=== PATIENT | male | born 1985 | race Caucasian/White ===

== ENCOUNTER 2019-01-31 19:21 | Inpatient (IN) | payer MEDICARE, OTHER ==
[2019-01-31] MEDS ORDERED: SODIUM CHLORIDE 0.9% 1,000 ML IV STA (19:45)
[2019-01-31 21:00] LABS: Amorphous Sediment,Urine Rare /hpf; Appearance,Urine Turbid (Clear); Bilirubin,Urine Negative (Negative); Blood,Urine Large (Negative); Color,Urine Red; Glucose,Urine (UA) Negative (Negative); Ketones,Urine Negative (Negative); Leukocyte Esterase,Urine Small (Negative); Nitrite,Urine Negative (Negative); PH, Urine 5.5 (5.0-8.0); Protein,Urine 2+ (Negative); RBC,Urine >182 /hpf (0-5); Specific Gravity,Urine 1.014 (1.001-1.035); Urobilinogen,Urine <2.0 mg/dL (<2.0); WBC,Urine 31 /hpf (0-5)
[2019-01-31] MEDS ORDERED: cefTRIAXone 1,000 MG VIAL (IM USE) IM STA (21:42)
[2019-01-31] MEDS ORDERED: MORPHINE SULFATE 4 MG/ML SYRINGE IV STA (22:22)
--- NOTE | 2019-01-31 22:28 | US ---
EXAMINATION TYPE: US venous doppler duplex LE RT DATE OF EXAM: 01/31/2019 10:01 PM COMPARISON: NONE CLINICAL HISTORY: cellulitis. Cellulitis. SIDE PERFORMED: Right TECHNIQUE: The lower extremity deep venous system is examined utilizing real time linear array sonog raghu with graded compression, doppler sonography and color-flow sonography. VESSELS IMAGED: Greater Saphenous Vein * Femoral Vein Popliteal Vein Patient 537 pounds. Right Leg: Very limited exam due to body habitus and patient position. Exam minimally diagnostic. Hypoechoic area with hyperechoic center seen in the right groin measurin.0 x 4.3 x 2.8 cm. Color flow and compressibility seen right GSV mid thigh. Color flow seen in the proximal-mid femoral vein. Limited visibility for compression images of femoral vein. Limited evaluation of popliteal vein . Color flow is seen mid-distal popliteal vein. Proximal calf veins not well seen. Limited compressio n images. IMPRESSION: Exam severely limited. Cannot demonstrate deep venous thrombosis. There is a large mass in the right inguinal region that is probably an enlarged lymph node.
--- NOTE | 2019-01-31 22:29 | XR ---
EXAMINATION TYPE: XR chest 2V DATE OF EXAM: 01/31/2019 COMPARISON: NONE HISTORY: Cough and fever TECHNIQUE: Frontal and lateral views of the chest are obtained. FINDINGS: Heart and mediastinum are normal. Lungs are clear. Diaphragm is normal. Bony thorax is int act. IMPRESSION: No active cardiopulmonary disease.
--- NOTE | 2019-01-31 22:30 | XR ---
EXAMINATION TYPE: XR tibia fibula RT DATE OF EXAM: 01/31/2019 COMPARISON: NONE HISTORY: Cellulitis. Fever. TECHNIQUE: 4 views FINDINGS: There is significant subcutaneous edema and obesity. I see no fracture nor dislocation. The re is an Achilles calcaneal spur. There is no sign of focal bone destruction. Tibia and fibula appear intact. IMPRESSION: No fracture seen. No evidence of osteomyelitis.
[2019-01-31 23:10] LABS: Anisocytosis Slight; Basophils # (A) 0.1 k/uL (0-0.2); Basophils % (A) 1 %; Eosinophils % (A) 0 %; HCT 37.6 % (39.0-53.0); HGB 11.8 gm/dL (13.0-17.5); Hypochromasia Slight; Lymphocytes # (A) 0.7 k/uL (1.0-4.8); Lymphocytes % (A) 5 %; MCH 25.8 pg (25.0-35.0); MCHC 31.3 g/dL (31.0-37.0); MCV 82.5 fL (80.0-100.0); Mean Platelet Volume 6.4; Monocytes # (A) 0.4 k/uL (0-1.0); Monocytes % (A) 3 %; Neutrophils # (A) 12.4 k/uL (1.3-7.7); Neutrophils % (A) 90 %; Platelet Count 284 k/uL (150-450); RBC 4.56 m/uL (4.30-5.90); RDW 16.2 % (11.5-15.5); WBC 13.8 k/uL (3.8-10.6)
[2019-01-31 23:20] LABS: Albumin 3.3 g/dL (3.5-5.0); Calcium 8.7 mg/dL (8.4-10.2); Total Bilirubin 0.4 mg/dL (0.2-1.3); Total Protein 6.4 g/dL (6.3-8.2)
[2019-01-31] MEDS ORDERED: VANCOMYCIN IV PER PHARMACY 1 EACH MISC MISCELLANE PRN (23:50)
--- NOTE | 2019-01-31 23:51 | ED ---
General Adult HPI - General Source: EMS, RN notes reviewed, old records reviewed Mode of arrival: EMS Limitations: no limitations <Jalil Viveros - Last Filed: 02/01/19 00:55> <Jya Che - Last Filed: 02/01/19 06:05> - General Chief complaint: Extremity Problem,Nontraumatic Stated complaint: Leg Infection Time Seen by Provider: 01/31/19 19:26 - History of Present Illness Initial comments: 33-year-old male patient passed history of morbid obesity, polycystic kidney disease, solitary kidney presents to ED for chief complaint of right lower extremity cellulitis. Mother reports has been ongoing for approximately one week. Patient reports cough. Denies any other complaints. Systemic: Pt denies fatigue, fever/chills, rash. Pt denies weakness, night sweats, weight loss. Neuro: Pt denies headache, visual disturbances, syncope or pre-syncope. HEENT: Pt denies ocular discharge or irritation, otalgia, rhinorrhea, pharyngitis or notable lymphadenopathy. Cardiopulmonary: Pt denies chest pain, SOB, heart palpitations, dyspnea on exertion. Abdominal/GI: Pt denies abdominal pain, n/v/d. : Pt denies dysuria, burning w/ urination, frequency/urgency. Denies new onset urinary or bowel incontinence. MSK: Pt denies myalgia, loss of strength or function in extremities. Neuro: Pt denies new onset weakness, paresthesias. (Jalil Viveros) - Related Data Allergies Allergy/AdvReac Type Severity Reaction Status Date / Time No Known Allergies Allergy Verified 01/31/19 20:45 Review of Systems ROS Other: All systems not noted in ROS Statement are negative. <Jalil Viveros - Last Filed: 02/01/19 00:55> ROS Other: All systems not noted in ROS Statement are negative. <Jay Che - Last Filed: 02/01/19 06:05> ROS Statement: Those systems with pertinent positive or pertinent negative responses have been documented in the HPI. Past Medical History Past Medical History: Memory Impairment, Skin Disorder Additional Past Medical History / Comment(s): 1 kidney polycystic kidney disease age 2. enlarged heart. 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 History of Any Multi-Drug Resistant Organisms: None Reported Additional Past Surgical History / Comment(s): right kidney removed age 2 Past Psychological History: No Psychological Hx Reported Smoking Status: Never smoker Past Alcohol Use History: None Reported Past Drug Use History: None Reported <Jalil Viveros - Last Filed: 02/01/19 00:55> General Exam Limitations: no limitations <Jalil Viveros - Last Filed: 02/01/19 00:55> - General Exam Comments Initial Comments: Constitutional: NAD, AOX3, Pt has pleasant affect. HEENT: NC/AT, trachea midline, neck supple, no lymphadenopathy. Posterior pharynx non erythematous, without exudates. External ears appear normal, without discharge. Mucous membranes moist. Eyes PERRLA, EOM intact. There is no scleral icterus. No pallor noted. Cardiopulmonary: RRR, no murmurs, rubs or gallops, no JVD noted. Lungs CTAB in anterior and posterior larson. Abdominal exam: Abdomen soft and non-distended. Abdomen non-tender to palpation in all 4 quadrants. Bowel sounds active in LLQ. No hepatosplenomegaly. No ecchymosis Neuro: CN II-XII grossly intact. No nuchal rigidity. No raccon eyes, no arias sign, no hemotympanum. No cervical spinal tenderness. MSK: Right lower extremity cellulitic, edematous. Mildly tender to palpation. No streaking. Capillary refill <2 seconds. Sensation intact in upper and lower extremities. Full active ROM in upper and lower extremities, 5/5 stregnth. (Jalil Viveros) Course Vital Signs 01/31/19 02/01/19 02/01/19 19:24 00:50 02:44 Temperature 99.3 F 99.3 F Pulse Rate 101 H 95 94 Respiratory 21 18 20 Rate Blood Pressure 128/72 125/68 116/63 O2 Sat by Pulse 99 98 97 Oximetry Medical Decision Making - Lab Data Result diagrams: 01/31/19 22:44 01/31/19 22:44 <Jalil Viveros - Last Filed: 02/01/19 00:55> - Lab Data Result diagrams: 01/31/19 22:44 01/31/19 22:44 <Jay Che - Last Filed: 02/01/19 06:05> - Medical Decision Making 33-year-old male patient presents ED for chief complaint of right lower extremity cellulitis as well as cough. Has been ongoing for approximately one week. Patient vital signs are stable, afebrile. Physical exam didn't display cellulitic, edematous right lower extremity. Mild tender to palpation. No fluctuance. No drainage. Chest x-ray negative. Plain film of tibia/fibula negative. Ultrasound of right lower extremity did not display any DVT, didn't display an enlarged right inguinal lymph node. However was grossly nondiagnostic due to body habitus. O2 investigations revealed leukocytosis of 13.8. CMP revealed creatinine of 2.0. BUN of 38. Baseline unknown. Lactic acid 1.4. UA displayed gross hematuria, likely secondary to body habitus. Patient initiated on Rocephin, vancomycin. Delay in IV access due to body habitus, consent and plan for central line was obtained however prior to procedure IV access was obtained. Patient be admitted for cellulitis. Case discussed and patient seen by Dr. Perez. (Jalil Viveros) I saw this patient in conjunction with the physician elementary assistant teacher. I performed independent history and physical exam. Agree with case management. (Jay Che) - Lab Data Lab Results 01/31/19 01/31/19 01/31/19 Range/Units 20:40 22:44 22:44 WBC 13.8 H (3.8-10.6) k/uL RBC 4.56 (4.30-5.90) m/uL Hgb 11.8 L (13.0-17.5) gm/dL Hct 37.6 L (39.0-53.0) % MCV 82.5 (80.0-100.0) fL MCH 25.8 (25.0-35.0) pg MCHC 31.3 (31.0-37.0) g/dL RDW 16.2 H (11.5-15.5) % Plt Count 284 (150-450) k/uL Neutrophils % 90 % Lymphocytes % 5 % Monocytes % 3 % Eosinophils % 0 % Basophils % 1 % Neutrophils # 12.4 H (1.3-7.7) k/uL Lymphocytes # 0.7 L (1.0-4.8) k/uL Monocytes # 0.4 (0-1.0) k/uL Eosinophils # 0.0 (0-0.7) k/uL Basophils # 0.1 (0-0.2) k/uL Hypochromasia Slight Anisocytosis Slight Sodium 138 (137-145) mmol/L Potassium 4.0 (3.5-5.1) mmol/L Chloride 100 (98-107) mmol/L Carbon Dioxide 31 H (22-30) mmol/L Anion Gap 7 mmol/L BUN 38 H (9-20) mg/dL Creatinine 2.04 H (0.66-1.25) mg/dL Est GFR (CKD-EPI)AfAm 48 (>60 ml/min/1.73 sqM) Est GFR (CKD-EPI)NonAf 41 (>60 ml/min/1.73 sqM) Glucose 84 (74-99) mg/dL Plasma Lactic Acid Familia (0.7-2.0) mmol/L Calcium 8.7 (8.4-10.2) mg/dL Total Bilirubin 0.4 (0.2-1.3) mg/dL AST 40 (17-59) U/L ALT 56 (21-72) U/L Alkaline Phosphatase 134 H (38-126) U/L Total Protein 6.4 (6.3-8.2) g/dL Albumin 3.3 L (3.5-5.0) g/dL Urine Color Red Urine Appearance Turbid (Clear) Urine pH 5.5 (5.0-8.0) Ur Specific Opdyke 1.014 (1.001-1.035) Urine Protein 2+ H (Negative) Urine Glucose (UA) Negative (Negative) Urine Ketones Negative (Negative) Urine Blood Large H (Negative) Urine Nitrite Negative (Negative) Urine Bilirubin Negative (Negative) Urine Urobilinogen <2.0 (<2.0) mg/dL Ur Leukocyte Esterase Small H (Negative) Urine RBC >182 H (0-5) /hpf Urine WBC 31 H (0-5) /hpf Urine WBC Clumps Moderate H (None) /hpf Amorphous Sediment Rare H (None) /hpf 01/31/19 Range/Units 22:53 WBC (3.8-10.6) k/uL RBC (4.30-5.90) m/uL Hgb (13.0-17.5) gm/dL Hct (39.0-53.0) % MCV (80.0-100.0) fL MCH (25.0-35.0) pg MCHC (31.0-37.0) g/dL RDW (11.5-15.5) % Plt Count (150-450) k/uL Neutrophils % % Lymphocytes % % Monocytes % % Eosinophils % % Basophils % % Neutrophils # (1.3-7.7) k/uL Lymphocytes # (1.0-4.8) k/uL Monocytes # (0-1.0) k/uL Eosinophils # (0-0.7) k/uL Basophils # (0-0.2) k/uL Hypochromasia Anisocytosis Sodium (137-145) mmol/L Potassium (3.5-5.1) mmol/L Chloride (98-107) mmol/L Carbon Dioxide (22-30) mmol/L Anion Gap mmol/L BUN (9-20) mg/dL Creatinine (0.66-1.25) mg/dL Est GFR (CKD-EPI)AfAm (>60 ml/min/1.73 sqM) Est GFR (CKD-EPI)NonAf (>60 ml/min/1.73 sqM) Glucose (74-99) mg/dL Plasma Lactic Acid Familia 1.4 (0.7-2.0) mmol/L Calcium (8.4-10.2) mg/dL Total Bilirubin (0.2-1.3) mg/dL AST (17-59) U/L ALT (21-72) U/L Alkaline Phosphatase (38-126) U/L Total Protein (6.3-8.2) g/dL Albumin (3.5-5.0) g/dL Urine Color Urine Appearance (Clear) Urine pH (5.0-8.0) Ur Specific Opdyke (1.001-1.035) Urine Protein (Negative) Urine Glucose (UA) (Negative) Urine Ketones (Negative) Urine Blood (Negative) Urine Nitrite (Negative) Urine Bilirubin (Negative) Urine Urobilinogen (<2.0) mg/dL Ur Leukocyte Esterase (Negative) Urine RBC (0-5) /hpf Urine WBC (0-5) /hpf Urine WBC Clumps (None) /hpf Amorphous Sediment (None) /hpf Disposition Is patient prescribed a controlled substance at d/c from ED?: No <Jalil Viveros - Last Filed: 02/01/19 00:55> <Jay Che - Last Filed: 02/01/19 06:05> Clinical Impression: Cellulitis Disposition: ADMITTED IP TO THIS HOSP Condition: Serious
[2019-02-01] MEDS ORDERED: MORPHINE SULFATE 4 MG/ML SYRINGE IV PRN (00:04)
[2019-02-01] MEDS ORDERED: NALOXONE 0.4 MG/ML 1 ML VIAL IV PRN (00:04)
[2019-02-01] MEDS ORDERED: VANCOMYCIN 2,500 MG in SODIUM CHLORIDE 0.9% 500 ML 500 ML IVPB ONE (01:00)
[2019-02-01] MEDS ORDERED: MAG HYDROX/AL HYDROX/SIMETH 30 ML, HYOSCYAMINE ELIXIR 10 ML, LIDOCAINE VISCOUS 2% 10 ML PO STA ×3 (01:07)
[2019-02-01] MEDS ORDERED: ONDANSETRON 4 MG/2 ML VIAL IVP STA (01:07)
[2019-02-01] MEDS: SODIUM CHLORIDE 0.9% 1,000 ML IV SCH ×3 (01:41→23:54)
[2019-02-01] MEDS ORDERED: ENOXAPARIN 150 MG/ML SYRINGE SQ STA (02:29)
[2019-02-01] MEDS ORDERED: ENOXAPARIN 150 MG/ML SYRINGE SQ ONE (05:00)
[2019-02-01] MEDS: LEVOTHYROXINE 75 MCG TAB PO SCH (11:44)
[2019-02-01] MEDS: ATENOLOL 25 MG TAB PO SCH (11:44)
[2019-02-01] MEDS: PANTOPRAZOLE 40 MG/10 ML VIAL IVP SCH (11:44)
[2019-02-01 11:51] LABS: Anisocytosis Slight; HGB 10.9 gm/dL (13.0-17.5); MCH 24.6 pg (25.0-35.0); MCHC 30.2 g/dL (31.0-37.0); MCV 81.3 fL (80.0-100.0); Mean Platelet Volume 7.5; Platelet Count 209 k/uL (150-450); RBC 4.43 m/uL (4.30-5.90); RDW 16.6 % (11.5-15.5); WBC 10.8 k/uL (3.8-10.6)
[2019-02-01 11:57] LABS: Calcium 8.1 mg/dL (8.4-10.2); Potassium 3.8 mmol/L (3.5-5.1)
[2019-02-01] MEDS: HYDROcodone/APAP 5-325MG 1 EACH TAB PO PRN ×2 (14:35→21:26)
[2019-02-01] MEDS: ceFAZolin 3 GM in SODIUM CHLORIDE 0.9% 100 ML IVPB SCH ×2 (16:38→23:54)
--- NOTE | 2019-02-01 16:38 | US ---
EXAMINATION TYPE: US kidneys/renal and bladder DATE OF EXAM: 02/01/2019 COMPARISON: NONE CLINICAL HISTORY: renal failure. Renal failure, history of polycystic kidney disease, right nephrecto my 31 years ago EXAM MEASUREMENTS: Right Kidney: Surgically absent Left Kidney: 16.0 x 11.0 x 9.4 cm Technical limitations due to patient's body habitus - 5'4", 530+ pounds Right Kidney: sugically absent Left Kidney: limited evaluation, enlarged, no evidence of hydronephrosis Bladder: unable to visualize Bilateral Jets seen: no IMPRESSION: Right kidney is surgically absent. There is severe limitation in evaluation of the enlarg ed left kidney. This patient has a history of polycystic kidney disease although no discrete renal le caty is seen given the severe limitation in evaluation. Questionable mild hydronephrosis.
[2019-02-01] MEDS: NYSTATIN 100,000 UNIT/GM POWD 15 GM TOPICAL SCH ×2 (20:03→23:55)
[2019-02-01] MEDS: NYSTATIN 100,000UNIT/GM CREAM 30 GM TUBE TOPICAL SCH ×2 (20:03→23:55)
[2019-02-01] MEDS: MONTELUKAST 10 MG TAB PO SCH (21:26)
--- NOTE | 2019-02-01 22:52 | P.CONS ---
History of Present Illness - Reason for Consult Consult date: 02/01/19 right leg cellulitis Requesting physician: Rafael Torres - Chief Complaint right leg swelling and redness x 1 week - History of Present Illness Patient is a 33-year-old morbidly obese male who has been brought into the ER at [facility] with chief complaints of swelling and redness to his right lower extremity that apparently has been getting worse for the last 1 week patient denies having any history of any trauma patient describing pain to the right leg to be sharp to dull aching with intensity about 5-6/10 and no radiation patient did have diffuse swelling and redness, however he did not have any blisters or any open wound or any drainage the patient did have some low- grade fever and chills with the symptoms the patient was evaluated by the ER physician on arrival to the ER to be to have low-grade fever of 99.8 patient did have elevated white count of 13,000 the lower extremity Doppler was limited but did not demonstrate any DVT patient has been started on vancomycin admit to the hospital infectious disease was consulted for further recommendation regarding antibiotic therapy. Review of Systems Positive point has been mentioned in HPI rest of the systems are negative Past Medical History Past Medical History: Memory Impairment, Skin Disorder Additional Past Medical History / Comment(s): 1 kidney polycystic kidney disease age 2. enlarged heart. 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 History of Any Multi-Drug Resistant Organisms: None Reported Additional Past Surgical History / Comment(s): right kidney removed age 2 Past Anesthesia/Blood Transfusion Reactions: No Reported Reaction Past Psychological History: No Psychological Hx Reported Smoking Status: Never smoker Past Alcohol Use History: None Reported Past Drug Use History: None Reported Medications and Allergies Home Medications Medication Instructions Recorded Confirmed Type Atenolol [Tenormin] 25 mg PO DAILY 02/01/19 02/01/19 History Bumetanide [BUMEX] 2 mg PO DAILY 02/01/19 02/01/19 History Ergocalciferol [Vitamin D2] 50,000 unit PO Q7D 02/01/19 02/01/19 History Ibuprofen [Motrin] 600 mg PO DAILY PRN 02/01/19 02/01/19 History Levothyroxine Sodium [Synthroid] 150 mcg PO QAM 02/01/19 02/01/19 History Montelukast [Singulair] 10 mg PO DAILY 02/01/19 02/01/19 History Vitamin B Complex 1 cap PO DAILY 02/01/19 02/01/19 History amLODIPine [Norvasc] 5 mg PO DAILY 02/01/19 02/01/19 History Allergies Allergy/AdvReac Type Severity Reaction Status Date / Time No Known Allergies Allergy Verified 02/01/19 07:56 Physical Exam Vitals: Vital Signs Temp Pulse Pulse Resp BP BP Pulse Ox 02/01/19 21:07 97.8 F 88 22 110/62 95 02/01/19 15:00 99.3 F 80 16 113/56 97 02/01/19 05:15 20 02/01/19 05:00 98.8 F 92 22 104/63 96 02/01/19 02:44 94 20 116/63 97 02/01/19 00:50 99.3 F 95 18 125/68 98 Intake and Output 02/01/19 02/01/19 02/01/19 06:59 14:59 22:59 Intake Total 2299 Balance 2299 Intake: Intake, IV Titration 2299 Amount Sodium Chloride 0.9% 1, 800 000 ml @ 60 mls/hr IV . [id number] [facility] Rx#:[id number] Sodium Chloride 0.9% 1, 999 000 ml @ 999 mls/hr IV . Q1H1M [facility] Rx#:[id number] Vancomycin 2,500 mg In 500 Sodium Chloride 0.9% 500 ml 500 ml @ 167 mls/hr IVPB Q24H [facility] Rx#: [id number] Other: Voiding Method Bedpan Incontinent Diaper Incontinent # Voids 2 3 # Bowel Movements 1 2 GENERAL DESCRIPTION: Middle-aged male lying in bed, no distress. No tachypnea or accessory muscle of respiration use. HEENT: Shows Pallor , no scleral icterus. Oral mucous membrane is dry. NECK: Trachea central, no thyromegaly. LUNGS: Unlabored breathing. Decreased breath sound at the base. No wheeze or crackle. HEART: S1, S2, regular rate and rhythm. ABDOMEN: Soft, no tenderness , guarding or rigidity EXTREMITIES: Diffuse swelling of both lower extremity however her right leg is more swollen right warm to touch and tender no open wound or any drainage SKIN: No rash, no masses palpable. NEUROLOGICAL: The patient is awake, alert, oriented x3, mood and affect normal. Results CBC & Chem 7: 02/01/19 11:18 02/01/19 11:18 Labs: Abnormal Lab Results - Last 24 Hours (Table) 01/31/19 01/31/19 02/01/19 Range/Units 22:44 22:44 11:18 WBC 13.8 H 10.8 H (3.8-10.6) k/uL Hgb 11.8 L 10.9 L (13.0-17.5) gm/dL Hct 37.6 L 36.0 L (39.0-53.0) % MCH 24.6 L (25.0-35.0) pg MCHC 30.2 L (31.0-37.0) g/dL RDW 16.2 H 16.6 H (11.5-15.5) % Neutrophils # 12.4 H (1.3-7.7) k/uL Lymphocytes # 0.7 L (1.0-4.8) k/uL Carbon Dioxide 31 H (22-30) mmol/L BUN 38 H (9-20) mg/dL Creatinine 2.04 H (0.66-1.25) mg/dL Calcium (8.4-10.2) mg/dL Alkaline Phosphatase 134 H (38-126) U/L Albumin 3.3 L (3.5-5.0) g/dL 02/01/19 Range/Units 11:18 WBC (3.8-10.6) k/uL Hgb (13.0-17.5) gm/dL Hct (39.0-53.0) % MCH (25.0-35.0) pg MCHC (31.0-37.0) g/dL RDW (11.5-15.5) % Neutrophils # (1.3-7.7) k/uL Lymphocytes # (1.0-4.8) k/uL Carbon Dioxide (22-30) mmol/L BUN 37 H (9-20) mg/dL Creatinine 1.88 H (0.66-1.25) mg/dL Calcium 8.1 L (8.4-10.2) mg/dL Alkaline Phosphatase (38-126) U/L Albumin (3.5-5.0) g/dL Microbiology - Last 24 Hours (Table) 11/11/19 20:40 Urine Culture - Preliminary Urine,Voided Assessment and Plan Assessment: 1-patient presented to the hospital with acute cellulitis of his right lower extremity in this patient who did have diffuse swelling and redness and evidence of fluid overload likely representing streptococcal infection clinically doubt MRSA infection 2-patient with a history of polycystic kidney disease and one kidney high risk of nephrotoxicity from vancomycin (1) Cellulitis of right leg Current Visit: Yes Status: Acute Code(s): L03.115 - CELLULITIS OF RIGHT LOWER LIMB SNOMED Code(s): 846751075 Plan: 1-discontinue the vancomycin 2-marked the area of the redness 3-cefazolin 3 g every 8 hours 4-Nilo wrap to the leg from just above the toe to below the knee We will follow on clinical condition and cultures to further adjust medication if needed Thank you for this consultation we will follow the patient along with you Time with Patient: Greater than 30
--- NOTE | 2019-02-01 22:56 | CONS ---
CONSULTATION PHYSICAL EXAMINATION: On examination, the patient is comfortable, awake, alert, oriented x3. Not in any acute distress. Blood pressure is 104/63, heart rate 92 per minute, and he is afebrile. EXAMINATION OF THE HEART: S1 and S2. EXAMINATION OF THE LUNGS: Bilateral breath sounds are heard. ABDOMEN: Soft, morbidly obese. Examination of lower extremities shows significant erythema and swelling in the right leg. Chronic skin changes noted in the left leg as well. [employer] examination grossly intact. LABORATORY DATA: Labs show sodium 141, potassium 3.8, BUN 37, serum creatinine 1.8. Hemoglobin 10.9 g/dL. ASSESSMENT: 1. Acute kidney injury associated with underlying infection. Patient is currently maintained on IV fluids. I will decrease his IV fluids. His renal function is slightly improved. We need to be careful with the vancomycin, given his advanced renal failure. 2. Chronic kidney disease; baseline creatinine not known. Etiology polycystic kidneys and solitary kidney. 3. History of left nephrectomy at age 2 due to kidney being very large. 4. Morbid obesity. 5. Cellulitis, right lower extremity, maintained on vancomycin. 6. Hypertension. Blood pressure is currently on the lower side. Hold off on antihypertensive medications. PLAN: Decrease IV fluids. Patient is encouraged to avoid NSAIDs. Repeat labs in a.m. Check ultrasound of the kidney. Thank you for this consultation. Will continue to follow this patient with you during his hospitalization. MMODL / IJN: [id number] /
[2019-02-02] MEDS ORDERED: VANCOMYCIN 2,500 MG in SODIUM CHLORIDE 0.9% 500 ML 500 ML IVPB SCH (02:00)
[2019-02-02] MEDS: HYDROcodone/APAP 5-325MG 1 EACH TAB PO PRN ×2 (02:44→19:47)
[2019-02-02] MEDS: LEVOTHYROXINE 75 MCG TAB PO SCH (06:30)
[2019-02-02] MEDS: ATENOLOL 25 MG TAB PO SCH (07:02)
[2019-02-02] MEDS: ceFAZolin 3 GM in SODIUM CHLORIDE 0.9% 100 ML IVPB SCH ×2 (07:02→15:11)
[2019-02-02] MEDS: NYSTATIN 100,000 UNIT/GM POWD 15 GM TOPICAL SCH ×3 (07:03→21:41)
[2019-02-02] MEDS: PANTOPRAZOLE 40 MG/10 ML VIAL IVP SCH (07:03)
[2019-02-02] MEDS: NYSTATIN 100,000UNIT/GM CREAM 30 GM TUBE TOPICAL SCH ×3 (07:03→21:41)
[2019-02-02] MEDS ORDERED: NON FORMULARY DRUG (Vitamin B Complex [Vitamin B Complex] 1 CAP) PO SCH (09:00)
[2019-02-02 09:50] LABS: Anisocytosis Slight; Basophils # (A) 0.1 k/uL (0-0.2); Basophils % (A) 1 %; Eosinophils % (A) 0 %; HCT 36.6 % (39.0-53.0); HGB 11.5 gm/dL (13.0-17.5); Hypochromasia Slight; Lymphocytes # (A) 0.9 k/uL (1.0-4.8); Lymphocytes % (A) 10 %; MCH 25.6 pg (25.0-35.0); MCHC 31.3 g/dL (31.0-37.0); MCV 81.9 fL (80.0-100.0); Mean Platelet Volume 7.2; Monocytes # (A) 0.5 k/uL (0-1.0); Monocytes % (A) 6 %; Neutrophils # (A) 7.2 k/uL (1.3-7.7); Neutrophils % (A) 81 %; Platelet Count 184 k/uL (150-450); RBC 4.47 m/uL (4.30-5.90); RDW 16.5 % (11.5-15.5); WBC 8.9 k/uL (3.8-10.6)
[2019-02-02 10:28] LABS: Calcium 8.1 mg/dL (8.4-10.2); Potassium 3.9 mmol/L (3.5-5.1)
[2019-02-02] MEDS: SODIUM CHLORIDE 0.9% 1,000 ML IV SCH (11:06)
--- NOTE | 2019-02-02 14:06 | PN ---
PROGRESS NOTE DATE OF SERVICE: 02/02/2019 REASON FOR FOLLOWUP: Right lower extremity cellulitis. INTERVAL HISTORY: The patient is currently afebrile. Patient is breathing comfortably. Patient denies having any chest pain or cough. No nausea, no vomiting, no abdominal pain. The right leg swelling persists and redness; however, did mention that the pain has decreased in intensity compared to when he was admitted to the hospital. PHYSICAL EXAMINATION: Blood pressure is 111/59 with a pulse of 80, temperature 98.6, he is 97% on 2 L nasal cannula. General description is a middle-aged male out of the bed, in no distress. RESPIRATORY SYSTEM:: Unlabored breathing, clear to auscultation anteriorly. HEART: S1, S2. Regular rate and rhythm. ABDOMEN: Soft, no tenderness. Right leg has significant swelling and redness, slightly decreased in intensity, no drainage. LABS: Hemoglobin is 11.5, white count of 8.9. BUN of 34, creatinine 1.78. Blood culture has been negative. DIAGNOSTIC IMPRESSION AND PLAN: Patient extensive right lower extremity cellulitis. The patient did have evidence of diffuse swelling and redness likely streptococcal disease. Patient is currently covered with cefazolin. In view of extensive infection, will add clindamycin for added benefit as well as Nilo wrap to keep the swelling down and monitor his clinical course closely. Continue supportive care. MMODL / IJN: [id number] /
--- NOTE | 2019-02-02 15:12 | PN ---
PROGRESS NOTE Patient is seen for followup for chronic kidney disease and acute kidney injury. Patient is maintained on gentle IV hydration. His creatinine has improved from 2.0 on initial admission to 1.78 today. Patient has a solitary kidney. He has underlying polycystic kidney disease. He is admitted with significant pain, swelling, and a wound on his right lower extremity. Patient was maintained on vancomycin, which is now switched to clinda and cefazolin. PHYSICAL EXAMINATION: On examination today, blood pressure was 111/69, heart rate 80 per minute, patient is afebrile. Examination shows the abdomen is soft, obese, non-tender. Patient is alert and oriented x3. Examination of the lower extremities shows chronic skin changes bilaterally with significant edema and swelling in the right lower extremity, currently wrapped. LABS: Show hemoglobin 11.5, sodium 139, potassium 3.9, BUN 34, creatinine 1.78. ASSESSMENT: 1. Chronic kidney disease secondary to polycystic kidney disease and solitary kidney. 2. Status post left nephrectomy at age 2. 3. Acute kidney injury, prerenal and associated with underlying infection currently slowly improving. Patient is maintained on saline at 50 mL an hour which we can continue. Vancomycin is appropriately discontinued. 4. Hypertension, maintained on Tenormin, currently stable. PLAN: The patient is advised to continue to avoid use of NSAIDs. He will need followup as outpatient. Continue with the saline at 50 mL an hour. MMODL / IJN: [id number] /
[2019-02-02] MEDS: CLINDAMYCIN 900 MG in DEXTROSE 5% IN WATER 50 ML IVPB SCH ×2 (16:01)
[2019-02-02] MEDS: MONTELUKAST 10 MG TAB PO SCH (21:40)
--- NOTE | 2019-02-02 22:49 | HP ---
HISTORY AND PHYSICAL This is a 33-year-old white male admitted through the emergency room with significant swelling and redness to the lower extremity for the past week. He has had a history of this 3 times in the past, admitted in [place] to [facility]. He says that swelling, redness and blisters came on over a week's period of time. He had some drainage, low- grade fever and chills as symptoms. He came to the ER with a fever of 99.8, white count 30,000. Left lower lobe Doppler did not demonstrate DVT. He was started on vancomycin and admitted to the hospital. REVIEW OF SYSTEMS: Fourteen-point review of systems negative except for morbid obesity and inability to lose weight. 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 No smoking. No alcohol. No illicit drugs. HOME MEDICINES: 1. Tenormin 25 daily. 2. Bumex 2 mg daily. 3. Motrin 600 mg daily. 4. Vitamin D 50,000 units q.7 days. 5. Levothyroxine 150 mcg daily. 6. Singulair 10 mg daily. 7. Norvasc 5 mg daily. ALLERGIES: NO KNOWN DRUG ALLERGIES. LABS: BUN is 37, creatinine 1.88. ASSESSMENT: 1. Acute cellulitis of the lower extremity. 2. Lymphedema. 3. Significant cellulitis of the lower extremity. 4. Acute renal insufficiency. 5. Mild dehydration. Continue in the next 24 to 48 hours with IV antibiotics. Await infectious disease consultation. Wound dressing changes. MMODL / IJN: [id number] /
--- NOTE | 2019-02-02 23:00 | PN ---
PROGRESS NOTE This patient is a 33-year-old white male with chronic kidney disease, acute kidney injury. Creatinine is improving from 2 to 1.78. He has decreased redness in his right leg despite diffuse significant erythema including the whole entire right leg from the knee to the foot. He is on clindamycin, cefazolin IV. Blood pressure 111/69, heart rate 80, temperature 98.6. Abdomen is soft, morbidly obese. Lymphedema-type changes to the lower extremity with significant edema, extreme redness and swelling and warm to the right leg from the foot to the knee. Hemoglobin 11.5. Sodium 139, potassium 3.9. BUN is 34, creatinine 1.78. ASSESSMENT: 1. Cellulitis of the right leg. 2. Chronic kidney disease. 3. Polycystic kidney disease. 4. Solitary kidney. Continue on normal saline. Vancomycin discontinued. 1. Hypertension, currently stable. Please see further orders, including clindamycin and cefazolin IV per infectious disease recommendations. Wound care to the ulcerations. MMODL / IJN: [id number] /
[2019-02-03] MEDS: ceFAZolin 3 GM in SODIUM CHLORIDE 0.9% 100 ML IVPB SCH ×3 (00:27→15:14)
[2019-02-03] MEDS: CLINDAMYCIN 900 MG in DEXTROSE 5% IN WATER 50 ML IVPB SCH ×6 (01:40→16:17)
[2019-02-03] MEDS: HYDROcodone/APAP 5-325MG 1 EACH TAB PO PRN ×3 (01:42→23:16)
[2019-02-03] MEDS: LEVOTHYROXINE 75 MCG TAB PO SCH (06:45)
[2019-02-03] MEDS: SODIUM CHLORIDE 0.9% 1,000 ML IV SCH (06:46)
[2019-02-03] MEDS: PANTOPRAZOLE 40 MG/10 ML VIAL IVP SCH (07:48)
[2019-02-03] MEDS: ATENOLOL 25 MG TAB PO SCH (07:49)
[2019-02-03] MEDS: NYSTATIN 100,000UNIT/GM CREAM 30 GM TUBE TOPICAL SCH ×3 (07:49→20:34)
[2019-02-03] MEDS: NYSTATIN 100,000 UNIT/GM POWD 15 GM TOPICAL SCH ×3 (07:49→20:34)
[2019-02-03 08:27] LABS: Anisocytosis Slight; Basophils # (A) 0.1 k/uL (0-0.2); Basophils % (A) 1 %; Calcium 8.2 mg/dL (8.4-10.2); Eosinophils % (A) 0 %; HCT 37.1 % (39.0-53.0); HGB 11.6 gm/dL (13.0-17.5); Hypochromasia Moderate; Lymphocytes # (A) 0.8 k/uL (1.0-4.8); Lymphocytes % (A) 10 %; MCHC 31.1 g/dL (31.0-37.0); MCV 83.4 fL (80.0-100.0); Mean Platelet Volume 6.4; Monocytes # (A) 0.7 k/uL (0-1.0); Monocytes % (A) 8 %; Neutrophils # (A) 6.9 k/uL (1.3-7.7); Neutrophils % (A) 80 %; Platelet Count 202 k/uL (150-450); Potassium 3.9 mmol/L (3.5-5.1); RBC 4.45 m/uL (4.30-5.90); RDW 16.1 % (11.5-15.5); WBC 8.6 k/uL (3.8-10.6)
[2019-02-03] MEDS ORDERED: ONDANSETRON 4 MG/2 ML VIAL IVP PRN (12:22)
--- NOTE | 2019-02-03 17:20 | PN ---
PROGRESS NOTE Patient is seen for followup for acute kidney injury. Patient's renal function continues to improve. He is maintained on gentle IV hydration. Patient has a solitary kidney with history of right nephrectomy during childhood. He has underlying CKD from polycystic kidney disease. Patient is admitted to the hospital with left lower extremity wound and cellulitis. PHYSICAL EXAMINATION: On examination today, blood pressure was 119/75, heart rate 94 per minute. Patient is afebrile. EXAMINATION OF THE HEART: S1 and S2. EXAMINATION OF LUNGS: Bilateral breath sounds are heard. ABDOMEN: Soft, non-tender and morbidly obese. Examination of lower extremities shows significant edema. Right lower extremity with erythema noted which has not improved. EXPLOSIVE OPERATOR exam is grossly intact. LABS: Hemoglobin 11.6, white cell count 8.6, sodium 142, potassium 3.9, BUN 29, creatinine 1.63. ASSESSMENT: 1. Acute kidney injury associated with underlying infection, prerenal component, currently improving. Discontinue IV fluids. Patient has solitary kidney with history of right nephrectomy. Patient had initially stated he had left nephrectomy; however, ultrasound shows absent right kidney. 2. Polycystic kidney disease, NKF stage III. Baseline creatinine not known; possibly around 1.5 mg/dL. 3. Morbid obesity. PLAN: Continue to avoid any NSAIDs. Discontinue IV fluids. Repeat labs in a.m. Continue antibiotics. MMODL / IJN: [id number] /
[2019-02-03] MEDS: MONTELUKAST 10 MG TAB PO SCH (20:32)
--- NOTE | 2019-02-03 23:50 | PN ---
PROGRESS NOTE DATE OF SERVICE: 02/03/2019 REASON FOR FOLLOWUP: Right lower extremity cellulitis. INTERVAL HISTORY: The patient did have a low-grade fever of 100.3 this afternoon. The patient still has persistent swelling and redness of the right lower extremity and has been complaining of a little bit more pain to the right leg, more of a dull aching, 4 to 5 out of 10 and no radiation. Currently with no open wound or any drainage. Denies having any chest pain or cough. No abdominal pain. No diarrhea. REVIEW OF SYSTEMS: Positive points are mentioned above. Rest of the systems negative. Past medical and surgical history medication reviewed. PHYSICAL EXAMINATION: Blood pressure is 140/76 with a pulse of 86, temperature 100.3. He is 97% on 2 L nasal cannula. General description is a middle-aged male lying in bed in no distress. RESPIRATORY SYSTEM: Unlabored breathing. Clear to auscultation anteriorly. HEART: S1, S2. Regular rate and rhythm. ABDOMEN: Soft. No tenderness. Right leg still has significant swelling and redness which is warm and tender to touch. LABS: White count 8.6, creatinine 1.63. DIAGNOSTIC IMPRESSION AND PLAN: Patient with acute right lower extremity cellulitis in this patient who did have no good clinical response. Switch antibiotic therapy to cefazolin and clindamycin with a question of possible -associated MRSA. Patient has a low-grade fever now; hence we will repeat a blood cultures. Switch antibiotic therapy to daptomycin 4 mg/kg and discontinue the cefazolin and clindamycin. The patient would be high risk of nephrotoxicity with vancomycin, as he did have a high creatinine on admission, and because of his extreme weight he will need a very high dose; hence would avoid vancomycin in his condition and we will monitor his clinical course closely.. MMODL / IJN: [id number] /
[2019-02-04] MEDS: LEVOTHYROXINE 75 MCG TAB PO SCH (05:19)
[2019-02-04] MEDS: HYDROcodone/APAP 5-325MG 1 EACH TAB PO PRN ×2 (05:22→16:30)
[2019-02-04] MEDS: NYSTATIN 100,000UNIT/GM CREAM 30 GM TUBE TOPICAL SCH ×3 (07:53→21:26)
[2019-02-04] MEDS: NYSTATIN 100,000 UNIT/GM POWD 15 GM TOPICAL SCH ×3 (07:53→21:26)
[2019-02-04] MEDS: ATENOLOL 25 MG TAB PO SCH (09:10)
[2019-02-04] MEDS: PANTOPRAZOLE 40 MG TABLET PO SCH (09:15)
--- NOTE | 2019-02-04 11:04 | P.PN ---
Subjective Patient is seen in follow-up for acute kidney injury. Renal function has been gradually improving since admission. Creatinine 1.63 as of yesterday. Denies chest pain or shortness of breath. Urine output is good. Oral intake is good. Currently being treated for lower extremity cellulitis. Vital signs are stable. General: The patient appeared well nourished and normally developed. HEENT: Head exam is unremarkable. Neck is without jugular venous distension. LUNGS: Lungs are clear to auscultation and percussion. Breath sounds decreased. HEART: Rate and Rhythm are regular. First and second heart sounds normal. No murmurs, rubs or gallops. ABDOMEN: Abdominal exam reveals normal bowel sounds. Obese. EXTREMITITES: No clubbing, cyanosis, or edema. Right lower extremity erythema noted. No obvious drainage. Objective - Vital Signs Vital signs: Vital Signs Temp 97.0 F L 02/04/19 09:24 Pulse 85 02/04/19 09:24 Resp 20 02/04/19 10:00 BP 110/55 02/04/19 09:24 Pulse Ox 99 02/04/19 09:24 Intake & Output 02/03/19 02/04/19 02/04/19 18:59 06:59 18:59 Intake Total 540 Balance 540 Intake: Oral 540 Other: Voiding Method Diaper Diaper Diaper # Voids 2 4 # Bowel Movements 0 - Labs CBC & Chem 7: 02/03/19 07:25 02/03/19 07:25 Labs: Microbiology - Last 24 Hours (Table) 01/31/19 22:44 Blood Culture - Preliminary Blood No Growth after 72 hours Assessment and Plan Plan: Assessment: 1. Acute kidney injury mostly prerenal secondary to infection. Improving with IV hydration. Creatinine 1.63 as of yesterday. No evidence of hydronephrosis noted on kidney ultrasound. 2. Solitary left kidney. Patient has history of right nephrectomy. 3. Chronic kidney disease. Unknown baseline renal function. Etiology is solitary left kidney as well as polycystic kidney disease. 4. Lower extremity cellulitis maintained on antibiotics. 5. Morbid obesity. Plan: Encourage oral intake. Avoid nephrotoxins. Will need to follow-up outpatient in 2 weeks postdischarge.
--- NOTE | 2019-02-04 13:44 | PN ---
PROGRESS NOTE DATE OF SERVICE: 02/03/2019 This 33-year-old white male who was admitted with significant cellulitis of the right lower extremity. He has got a cough. CAT scan of his chest has been ordered. CARDIOVASCULAR: S1, S2. LUNGS: Transmitted upper airway sounds, otherwise, clear. Chest x-ray prior was clear. He will be given albuterol updrafts p.r.n. for pain and cough syrup. Remains on broad-spectrum antibiotics for his leg cellulitis. ENDOCRINE: BMI is well over 50. Surgical consult will be seeing him for possible gastric sleeve and throwing up. He threw up once today. Remains with Infectious Disease for IV antibiotics for his leg. CARDIOVASCULAR: S1, S2. LUNGS: Clear. HEMATOLOGY: Large edematous extremities with gross lymphedema with significant redness from the foot to the toes. ASSESSMENT: Cellulitis of the right lower leg of significant nature. Continue with broad-spectrum antibiotics. Set up for possible lap band surgery. Do CAT scan of the chest if possible. MMODL / IJN: [id number] /
--- NOTE | 2019-02-04 13:46 | PN ---
PROGRESS NOTE DATE OF SERVICE: 02/04/2019 REASON FOR FOLLOWUP: Right lower extremity cellulitis. INTERVAL HISTORY: The patient is currently afebrile. Patient is breathing comfortably. The patient's right leg swelling persists, redness is slightly decreased. Denies any chest pain. No cough. No abdominal pain, no diarrhea. PHYSICAL EXAMINATION: Blood pressure is 110/55 with a pulse of 85, temperature 97, he is 99% on 2 L nasal cannula. General description is a middle-aged male, lying in bed in no distress. RESPIRATORY SYSTEM: Unlabored breathing, clear to auscultation anteriorly. HEART: S1, S2. Regular rate and rhythm. ABDOMEN: Soft, no tenderness. EXTREMITIES: Right leg swelling persists, redness has slightly decreased. LABS: No new labs have been obtained today. Blood culture has been negative. DIAGNOSTIC IMPRESSION AND PLAN: Patient with extensive right lower extremity cellulitis. Patient seemed to have shown clinical improvement after change of antibiotic therapy to daptomycin. Recommend getting a midline and continuation of IV daptomycin for at least 10 more days to finish a 2-week course of therapy. Continue supportive care. MMODL / IJN: [id number] /
--- NOTE | 2019-02-04 14:06 | P.GSCN ---
History of Present Illness Consult date: 02/04/19 Reason for Consult: possible sleeve Requesting physician: Rafael Torres History of present illness: CHIEF COMPLAINT: Possible sleeve HISTORY OF PRESENT ILLNESS: 33-year-old male who is admitted to the hospital secondary to cellulitis. General surgery was consulted to evaluate for possible bariatric surgery. Patient currently with a BMI of 92.2. Last recorded weight 243 kg. Patient examined at the bedside with Dr. Yost. Patient reports an episode of emesis yesterday but has resolved. He is tolerating diet today with no further episodes of emesis. He is passing flatus and having bowel movements. PAST MEDICAL HISTORY: See list. PAST SURGICAL HISTORY: See list. SOCIAL HISTORY: No illicit drug use. REVIEW OF SYSTEMS: CONSTITUTIONAL: Denies fever or chills. HEENT: Denies blurred vision, vision changes, or eye pain. Denies hemoptysis CARDIOVASCULAR: Denies chest pain or pressure. RESPIRATORY: No shortness of breath. GASTROINTESTINAL: Refer to HPI for pertinent findings HEMATOLOGIC: Denies bleeding disorders. GENITOURINARY: Denies any blood in urine. SKIN: Denies pruitis. Denies rash. PHYSICAL EXAM: VITAL SIGNS: Reviewed. GENERAL: Well-developed in no acute distress. Patient morbidly obese. HEENT: No sclera icterus. Extraocular movements grossly intact. Moist buccal mucosa. Head is atraumatic, normocephalic. ABDOMEN: Soft. Nondistended. Nontender. NEUROLOGIC: Alert and oriented. Cranial nerves II through XII grossly intact. LABORATORY DATA: WBC 8.6. Hemoglobin 11.6. Platelet count 202. Sodium 142. Potassium 3.9. BUN 29. Creatinine 1.63. ASSESSMENT: 1. Super morbid obesity, BMI 92.2 2. Isolated episode of emesis, since resolved PLAN: 1. Continue diet as tolerated 2. No family at the bedside during examination. Dr. Yost to speak with patient and family tomorrow more about bariatric surgery. Patient would be required to lose a significant amount of weight on his own before he could safely undergo bariatric weight loss surgery. Patient may follow with Dr. Yost in the bariatric center post discharge. Nurse practitioner note has been reviewed by physician. Signing provider agrees with the documented findings, assessment, and plan of care. Past Medical History Past Medical History: Memory Impairment, Skin Disorder Additional Past Medical History / Comment(s): 1 kidney polycystic kidney disease age 2. enlarged heart. 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 History of Any Multi-Drug Resistant Organisms: None Reported Additional Past Surgical History / Comment(s): right kidney removed age 2 Past Anesthesia/Blood Transfusion Reactions: No Reported Reaction Past Psychological History: No Psychological Hx Reported Smoking Status: Never smoker Past Alcohol Use History: None Reported Past Drug Use History: None Reported Medications and Allergies Home Medications Medication Instructions Recorded Confirmed Type Atenolol [Tenormin] 25 mg PO DAILY 02/01/19 02/01/19 History Bumetanide [BUMEX] 2 mg PO DAILY 02/01/19 02/01/19 History Ergocalciferol [Vitamin D2] 50,000 unit PO Q7D 02/01/19 02/01/19 History Ibuprofen [Motrin] 600 mg PO DAILY PRN 02/01/19 02/01/19 History Levothyroxine Sodium [Synthroid] 150 mcg PO QAM 02/01/19 02/01/19 History Montelukast [Singulair] 10 mg PO DAILY 02/01/19 02/01/19 History Vitamin B Complex 1 cap PO DAILY 02/01/19 02/01/19 History amLODIPine [Norvasc] 5 mg PO DAILY 02/01/19 02/01/19 History Allergies Allergy/AdvReac Type Severity Reaction Status Date / Time No Known Allergies Allergy Verified 02/01/19 07:56 Surgical - Exam Vital Signs Temp Pulse Resp BP Pulse Ox 99.3 F 101 H 21 128/72 99 01/31/19 19:24 01/31/19 19:24 01/31/19 19:24 01/31/19 19:24 01/31/19 19:24 Results - Labs 02/03/19 07:25 02/03/19 07:25 Microbiology - Last 24 Hours (Table) 01/31/19 22:44 Blood Culture - Preliminary Blood No Growth after 72 hours
[2019-02-04] MEDS: guaiFENesin-DM 100-10MG/5ML 10 ML CUP PO PRN (14:10)
[2019-02-04] MEDS: IPRATROPIUM-ALBUTEROL 3 ML NEB INHALATION SCH (19:15)
[2019-02-04] MEDS: BUDESONIDE 0.5 MG/2 ML NEBU INHALATION SCH (19:15)
--- NOTE | 2019-02-04 19:49 | CONS ---
CONSULTATION Stan Sutherland is a 33-year-old male who presented to the ED at [facility] with increasing shortness of breath. He also had swelling of his right lower extremity with some redness. He has some cough with wheezing. Denies any clear fever or chills. PAST MEDICAL HISTORY: Past medical history is positive for: 1. Morbid obesity. 2. History of obstructive sleep apnea, for which he does not wear CPAP. 3. History of single kidney with polycystic kidney disease. 4. History of morbid obesity. FAMILY HISTORY: Positive for obstructive sleep apnea in his family. SOCIAL HISTORY: Patient is a never-smoker. Does not drink alcohol excessively. MEDICATIONS: His medications prior to admission were: 1. Vitamin B. 2. Motrin. 3. Vitamin D2. 4. Norvasc. 5. Singulair. 6. Synthroid. 7. Bumex. 8. Tenormin. REVIEW OF SYSTEMS: Noncontributory other than what is described in history of present illness and past medical history. PHYSICAL EXAMINATION: He is lying in bed. He is morbidly obese. He is mildly to moderately short of breath. His blood pressure is 120/63, respiratory rate of 18, pulse rate of 80, temperature max 98.1. Oxygen saturation on 2 L by nasal cannula is 96%. HEENT reveals pupils that are equal. There is redundant tissue in the posterior pharynx. Chest reveals decreased breath sounds with prolonged exhalation and expiratory wheeze. Cardiovascular system is in S1, S2. Abdomen is soft. There is 1+ to 2+ pedal edema. IMPRESSION AT THIS TIME: 1. Cellulitis of the lower extremities. 2. Asthma with mild exacerbation. 3. Acute on chronic respiratory failure, in part due to obesity hypoventilation syndrome. 4. Untreated obstructive sleep apnea with likely cor pulmonale. At this point in time, continue him on his current medications, add bronchodilators and aerosolized steroids. If he is motivated as an outpatient, would recommend a sleep study. Depending on how he does, we shall make further changes to his care. MMODL / IJN: [id number] /
[2019-02-04] MEDS: MONTELUKAST 10 MG TAB PO SCH (21:26)
--- NOTE | 2019-02-04 22:35 | PN ---
PROGRESS NOTE [id number]-old white male, breathing comfortably. Right lower leg swelling and redness is slightly decreased. IV daptomycin currently. Oxygen 99% on 2 L. Blood pressure 110/55, pulse 80 to 85, temperature 97. CARDIOVASCULAR: S1, S2. LUNGS: Clear. GI: Soft. Extremities show right leg swelling persists. Redness has slightly decreased. ASSESSMENT: Right lower extremity cellulitis, clinically improving with daptomycin. Continue for at least 10 more days. PT/OT. Possibly fci placement on Thursday or Thursday. MMODL / IJN: [id number] /
[2019-02-05] MEDS: HYDROcodone/APAP 5-325MG 1 EACH TAB PO PRN ×3 (04:00→19:08)
[2019-02-05] MEDS: LEVOTHYROXINE 75 MCG TAB PO SCH (05:36)
[2019-02-05] MEDS: ATENOLOL 25 MG TAB PO SCH (07:01)
[2019-02-05] MEDS: PANTOPRAZOLE 40 MG TABLET PO SCH (07:01)
[2019-02-05] MEDS: NYSTATIN 100,000 UNIT/GM POWD 15 GM TOPICAL SCH ×3 (07:02→22:04)
[2019-02-05] MEDS: NYSTATIN 100,000UNIT/GM CREAM 30 GM TUBE TOPICAL SCH ×3 (07:02→22:04)
[2019-02-05] MEDS: IPRATROPIUM-ALBUTEROL 3 ML NEB INHALATION SCH ×4 (07:28→19:40)
[2019-02-05] MEDS: BUDESONIDE 0.5 MG/2 ML NEBU INHALATION SCH ×2 (07:28→19:40)
--- NOTE | 2019-02-05 10:33 | P.PN ---
Progress Note - Text Progress Note Date: 02/05/19 The patient is on essentially unchanged from yesterday. He has super morbid obesity with BMI of 92. His weight is 244 kg or 536 pounds. The patient is extremely high risk for any procedure and his current condition. He may benefit from seeking bariatric surgery at a tertiary care center. He will follow-up with us as an outpatient in the [facility] bariatric clinic with myself.
--- NOTE | 2019-02-05 13:01 | PN ---
PROGRESS NOTE DATE OF SERVICE: 02/05/2019 He was seen on February 05, 2019. He is slightly less short of breath. He does not have a cough today. On physical examination his vitals are stable. He is afebrile. His O2 saturation on 3 L by nasal cannula is in the 90s. HEENT reveals: Redundant tissue in the posterior pharynx. Chest reveals no wheeze today. Cardiovascular system reveals an S1, S2. Abdomen is soft. There is 1+ pedal edema. IMPRESSION: At this time is: 1. Right lower extremity cellulitis. 2. Obstructive sleep apnea with cor pulmonale. 3. Mild bronchospasm which may in part be due to bronchitis. Would continue antibiotics per ID. Bronchodilators and aerosolized steroids. If motivated, would benefit from an outpatient sleep study. MMODL / IJN: [id number] /
[2019-02-05] MEDS: MONTELUKAST 10 MG TAB PO SCH (22:04)
[2019-02-06] MEDS: LEVOTHYROXINE 75 MCG TAB PO SCH (06:12)
[2019-02-06] MEDS: NYSTATIN 100,000 UNIT/GM POWD 15 GM TOPICAL SCH ×3 (06:50→21:23)
[2019-02-06] MEDS: NYSTATIN 100,000UNIT/GM CREAM 30 GM TUBE TOPICAL SCH ×3 (06:50→21:23)
[2019-02-06] MEDS: PANTOPRAZOLE 40 MG TABLET PO SCH (07:28)
[2019-02-06] MEDS: ATENOLOL 25 MG TAB PO SCH (07:28)
[2019-02-06] MEDS: guaiFENesin-DM 100-10MG/5ML 10 ML CUP PO PRN (07:28)
--- NOTE | 2019-02-06 07:30 | PN ---
PROGRESS NOTE He is still short of breath, lethargic, he has some coughing. A chest x-ray negative. Pulmonary saw him. He has morbid obesity, lymphedema. O2 at 3 L is in the mid 90s. ASSESSMENT: 1. Right lower extremity cellulitis. 2. Obstructive sleep apnea. 3. Cor pulmonale. 4. Bronchospasm, bronchitis. Continue IV antibiotics. Sleep study as an outpatient. IV daptomycin will be needed. His severe redness in his lower leg is improving on daptomycin. Still has most of his lower leg on the right side extremely red, swollen, warm. MMODL / IJN: [id number] /
[2019-02-06 08:32] LABS: Glucose,Whole Blood 100 mg/dL (75-99)
[2019-02-06] MEDS: IPRATROPIUM-ALBUTEROL 3 ML NEB INHALATION SCH ×4 (09:15→20:25)
[2019-02-06] MEDS: BUDESONIDE 0.5 MG/2 ML NEBU INHALATION SCH ×2 (09:15→20:25)
--- NOTE | 2019-02-06 11:19 | P.PN ---
Subjective Progress Note Date: 02/06/19 Principal diagnosis: This is a 33-year-old male seen in consultation because of acute kidney injury from underlying cellulitis and prerenal state. He was started on IV fluids. Ad ditionally he has chronic kidney disease secondary to polycystic kidney disease and a solitary kidney status post left nephrectomy at age 2 because of enlarged kidney. His THOUGH DATED 02/01/2019 IS NOT REPORTING ANY cysts. He also has morbid obesity. He has obstructive sleep apnea. Objective - Vital Signs Vital signs: Vital Signs Temp 98.9 F 02/06/19 08:22 Pulse 96 02/06/19 09:30 Resp 20 02/06/19 08:22 BP 153/87 02/06/19 05:04 Pulse Ox 95 02/06/19 08:22 Intake & Output 02/05/19 02/06/19 02/06/19 18:59 06:59 18:59 Intake Total 600 Balance 600 Intake: Oral 600 Other: Voiding Method Diaper Diaper Diaper Incontinent Incontinent Incontinent # Voids 1 2 # Bowel Movements 1 On examination he is morbidly obese male lying in bed. He is unable to move and was a difficult exam HEENT exam no JVP neck is supple no facial asymmetry Lungs exam was severely restricted but breath sounds seem to be fair no crackles heard Heart sounds are unremarkable but distant Abdomen is morbidly obese difficult to examine but nontender Extremity exam was severe edema and erythema in the right leg even about his knees the left leg has chronic lymphedema. Neurologically awake alert oriented 3 but profoundly weak - Labs CBC & Chem 7: 02/03/19 07:25 02/03/19 07:25 Labs: Abnormal Lab Results - Last 24 Hours (Table) 02/06/19 Range/Units 08:17 POC Glucose (mg/dL) 100 H (75-99) mg/dL Microbiology - Last 24 Hours (Table) 01/31/19 22:44 Blood Culture - Preliminary Blood No Growth after 120 hours 02/03/19 21:18 Blood Culture - Preliminary Blood No Growth after 48 hours Assessment and Plan Assessment: Impression 1. Acute kidney injury from prerenal from some severe cellulitis of the right leg. Creatinine has improved from a peak of 2.0. Admission down to -1.63 as of 3 days ago on 02/03/2019 no recent labs available. 2. Likely chronic kidney disease although Baseline creatinine unavailable. Ultrasound kidney was difficult, absent left kidney, right kidney cystic disease not noted. He has history of polycystic kidney disease with nephrectomy at an age a cause of large kidney. 3. Morbid obesity and bedridden. 4. Severe cellulitis of right leg 5. Anemia with chronic illness. Hemoglobin 11.6 at target 6. Hypertension nearly at target Recommendation 1. Repeat labs. 2. Maintain current medication 3. We will continue to follow with labs 4. We will continue to follow with labs and blood pressure monitoring
--- NOTE | 2019-02-06 14:48 | PN ---
PROGRESS NOTE DATE OF SERVICE: February 06, 2019. He has been hemodynamically stable. He is less short of breath. PHYSICAL EXAMINATION: Vitals are stable. He is afebrile. His chest reveals decreased breath sounds. Cardiovascular system reveals an S1, S2. Abdomen is soft. There is no pedal edema with erythema of the right lower extremity. IMPRESSION: At this time: 1. Right lower extremity cellulitis. 2. Mild asthma. 3. Obstructive sleep apnea. Continue bronchodilators, aerosolized steroids. His prognosis at this time is fair. MMODL / IJN: [id number] /
--- NOTE | 2019-02-06 18:48 | PN ---
PROGRESS NOTE White male with obstructive sleep apnea, severe morbid obesity, lymphedema with great improvement in his right leg cellulitis. Only 50% of his leg is now cellulitic with redness, swelling and warmth. Cardiovascular: S1-S2. Lungs transmitted upper air way signs. BMI is over 50. Hematology: Lymphedema changes. Integument: Redness 50% of his leg from his knee down to his ankle. ASSESSMENT: Great improvement with cellulitis with daptomycin. Needs 10 more days of IV daptomycin. Will await for possible rehab placement tomorrow. MMODL / IJN: [id number] /
[2019-02-06] MEDS: MONTELUKAST 10 MG TAB PO SCH (21:18)
[2019-02-07] MEDS: LEVOTHYROXINE 75 MCG TAB PO SCH (05:43)
--- NOTE | 2019-02-07 05:51 | PN ---
PROGRESS NOTE DATE OF SERVICE: 02/06/2019 REASON FOR FOLLOWUP: Right lower extremity cellulitis. INTERVAL HISTORY: The patient is currently afebrile. The patient has been breathing comfortably. The patient denies having any chest pain or any cough. No nausea or vomiting. No abdominal pain or any worsening pain in the right leg area. PHYSICAL EXAMINATION: Blood pressure is 153/87 with a pulse of 89, temperature 98.9. He is 95% on 2 L nasal cannula. General description is a middle-aged male lying in bed in no distress. RESPIRATORY SYSTEM: Unlabored breathing, clear to auscultation anteriorly. HEART: S1, S2. Regular rate and rhythm. ABDOMEN: Soft. Right leg swelling though it has slightly improved. LABS: Creatinine 1.63. White count is normal. Blood culture has been negative. DIAGNOSTIC IMPRESSION AND PLAN: Patient with extensive right lower extremity cellulitis and , did not show clinical response to the cefazolin and currently on daptomycin with clinical improvement, which should be continued for another 10 days to finish his course of therapy. Nilo wrap to the leg to keep the swelling down. Continue supportive care. MMODL / IJN: [id number] /
[2019-02-07] MEDS: BUDESONIDE 0.5 MG/2 ML NEBU INHALATION SCH (07:06)
[2019-02-07] MEDS: IPRATROPIUM-ALBUTEROL 3 ML NEB INHALATION SCH ×3 (07:07→15:38)
[2019-02-07] MEDS: PANTOPRAZOLE 40 MG TABLET PO SCH (07:49)
[2019-02-07] MEDS: ATENOLOL 25 MG TAB PO SCH (07:49)
[2019-02-07] MEDS: NYSTATIN 100,000UNIT/GM CREAM 30 GM TUBE TOPICAL SCH ×2 (08:17→16:07)
[2019-02-07] MEDS: NYSTATIN 100,000 UNIT/GM POWD 15 GM TOPICAL SCH ×2 (08:17→16:08)
--- NOTE | 2019-02-07 10:33 | P.PN ---
Subjective Patient is seen in follow-up for acute kidney injury. Renal function has been gradually improving since admission. Creatinine 1.63 as of February 03. Denies chest pain or shortness of breath. Urine output is good. Oral intake is good. Currently being treated for lower extremity cellulitis. Vital signs are stable. General: The patient appeared well nourished and normally developed. HEENT: Head exam is unremarkable. Neck is without jugular venous distension. LUNGS: Lungs are clear to auscultation and percussion. Breath sounds decreased. HEART: Rate and Rhythm are regular. First and second heart sounds normal. No murmurs, rubs or gallops. ABDOMEN: Abdominal exam reveals normal bowel sounds. Obese. EXTREMITITES: Lower extremities wrapped. Objective - Vital Signs Vital signs: Vital Signs Temp 98.5 F 02/07/19 07:00 Pulse 92 02/07/19 07:23 Resp 17 02/07/19 07:00 BP 167/91 02/07/19 07:00 Pulse Ox 94 L 02/07/19 07:00 Intake & Output 02/06/19 02/07/19 02/07/19 18:59 06:59 18:59 Other: Voiding Method Diaper Diaper Diaper Incontinent Incontinent Incontinent # Voids 2 2 # Bowel Movements 1 - Labs CBC & Chem 7: 02/03/19 07:25 02/03/19 07:25 Labs: Microbiology - Last 24 Hours (Table) 01/31/19 22:44 Blood Culture - Final Blood No Growth after 144 hours 02/03/19 21:18 Blood Culture - Preliminary Blood No Growth after 72 hours Assessment and Plan Plan: Assessment: 1. Acute kidney injury mostly prerenal secondary to infection. Improving with IV hydration. Creatinine 1.63 as of February 03. No evidence of hydronephrosis noted on kidney ultrasound. 2. Solitary left kidney. Patient has history of right nephrectomy. 3. Chronic kidney disease. Unknown baseline renal function. Etiology is solitary left kidney as well as polycystic kidney disease. 4. Lower extremity cellulitis maintained on antibiotics. 5. Morbid obesity. Plan: Encourage oral intake. Avoid nephrotoxins. Repeat electrolytes in the morning. Will need to follow-up outpatient in 2 weeks postdischarge.
--- NOTE | 2019-02-07 13:51 | CDI ---
Documentation Clarification Form Date: 02/07/2019 1:41:44 PM From: Marsha Rosales RN, CCDS Admit Date: 02/01/2019 2:25:00 AM Patient Name: Stan Sutherland Visit Number: [id number] ATTENTION: The Clinical Documentation Specialists (CDI) and [facility] Coding Staff appreciate your assistance in clarifying documentation. Please respond to the clarification below the line at the bottom and electronically sign. The CDI & [facility] Coding staff will review the response and follow-up if needed. Please note: Queries are made part of the Legal Health Record. If you have any questions, please contact the author of this message via ITS. Dr. Riley Espinal Asthma is documented in the Pulmonary Consult and Progress Note and requires further specificity. History/risk factors: Morbid Obesity with possible Obesity Hypoventilation syndrome, cor pulmonale, Acute cellulitis of lower extremity on multiple Antibiotics Clinical Indicators: 02/04 Pulmonary Consult: "Asthma with mild exacerbation." 02/06 Pulmonary Progress note: " mild asthma." 01/31 CXR:"No active cardiopulmonary disease" Vital Signs: Patient maintained on 2L nasal cannula entire stay with Respiratory rates of 18-22 Treatment: Medication: Duoneb INH QID, Pulmicort INH BID, Singuliar 10 mg po Q HS Consults: Pulmonary In your professional opinion, can you please further specify the following, if known? Acute Exacerbation Status asthmaticus Acute lower respiratory infection COPD (specify with or without exacerbation) Chronic obstructive bronchitis Other, please specify ___ Unable to determine Severity Mild intermittent Mild persistent Moderate persistent Severe persistent Other, please specify ____ Unable to determine Form or Type Cough variant Childhood Exercise induced bronchospasm Extrinsic allergic Idiosyncratic Intrinsic nonallergic Late-onset Mixed Other, please specify____ Unable to determine (Last Revision: June 2017) MTDD
--- NOTE | 2019-02-07 14:19 | CDI ---
Documentation Clarification Form Date: 02/07/2019 2:00:01 PM From: Marsha Rosales RN, CCDS Admit Date: 02/01/2019 2:25:00 AM Patient Name: Stan Sutherland Visit Number: [id number] ATTENTION: The Clinical Documentation Specialists (CDI) and [facility] Coding Staff appreciate your assistance in clarifying documentation. Please respond to the clarification below the line at the bottom and electronically sign. The CDI & [facility] Coding staff will review the response and follow-up if needed. Please note: Queries are made part of the Legal Health Record. If you have any questions, please contact the author of this message via ITS. Dr. Farnce Espinal Respiratory Failure has been documented and requires further specificity and clinical support. History/Risk Factors: polycystic kidney disease, enlarged heart, cellulitis, sleep apnea, Tobacco use: none Clinical Indicators: 02/04 Pulmonary Consult: Acute on chronic respiratory failure, in part due to obesity hypoventilation syndrome." Vital signs: temp 99.3, hr 101, RR 21, B/P 128/72, spo2 99% ra Pulse oximetry: consistently 96-99% on room air to 2L nasal cannula 04/09/18 Nephrology Lung/Breathing assessment: "LUNGS: Lungs are clear to auscultation and percussion. Breath sounds decreased." Treatment: Breathing TX: Duoneb INH QID, Pulmicort INH BID Pulse ox per unit protocol O2: 2L nasal cannula In your professional opinion, can you please clarify if these findings signify one of the following conditions? Acute on Chronic Respiratory Failure ruled out Acute on Chronic Hypoxic Respiratory Failure Acute on Chronic Hypercapnic Respiratory Failure Chronic Respiratory Failure Acute Respiratory Distress Acute Respiratory Insufficiency Other Diagnosis, please specify Unable to determine Specificity: If known, further specify (if known): With hypercapnia? (pCO2 >50 and pH <7.35) With hypoxia? (pO2 <60 mm Hg or SpO2 <91% on room air) (Last Query Form Revision: November 2018) MTDD
[2019-02-07 14:20] VITALS: BP 162/81; RESP 16; TEMP 98
[2019-02-07 15:54] VITALS: PULSE 84
--- NOTE | 2019-02-07 15:55 | PN ---
PROGRESS NOTE DATE OF SERVICE: 02/07/2019 REASON FOR FOLLOWUP: Right lower extremity cellulitis. INTERVAL HISTORY: The patient is currently afebrile. The patient is breathing comfortably. Denies having any chest pain or cough. No nausea, no vomiting, no abdominal pain or any worsening pain in the right leg area. Swelling has improved. PHYSICAL EXAMINATION: Blood pressure is 167/91 with a pulse of 93, temperature 98.5. He is 94% on 2 L nasal cannula. General description is a middle-aged male lying in bed in no distress. RESPIRATORY SYSTEM: Unlabored breathing. Clear to auscultation anteriorly. HEART: Regular rate and rhythm. ABDOMEN: Soft. No tenderness. Right leg swelling and redness have decreased. LABS: No new labs have been obtained today. DIAGNOSTIC IMPRESSION AND PLAN: Patient with acute right lower extremity cellulitis. The patient did not respond very well to the cefazolin and clindamycin and did have renal insufficiency, high risk of nephrosis currently on daptomycin; to continue for another 10 days with close outpatient followup. MMODL / IJN: [id number] /
--- NOTE | 2019-02-07 18:49 | DS ---
DISCHARGE SUMMARY DISCHARGE DIAGNOSES: 1. Lymphedema with severe cellulitis and ulceration of the right leg of significant nature. 2. Hypertension. 3. Asthma. 4. Hypothyroidism. 5. Morbid obesity. 6. Obstructive sleep apnea. HOME MEDICATIONS: 1. Daptomycin 1000 mg IV daily for 10 days. 2. Norvasc 5 mg daily. 3. Singulair 10 mg daily. 4. Synthroid 150 daily. 5. Vitamin D 50,000 units once a week. 6. Bumex mg daily. 7. Tenormin 25 daily. 8. Motrin 600 mg daily. 9. Vitamin B complex. CONDITION: Stable. PROGNOSIS: Guarded. He will need CPAP at night and lay off sodium in his diet. Follow up with Infectious Disease and myself for wound and significant cellulitis of his right lower leg. HOSPITAL COURSE OF EVENTS: This is a white male who was admitted with severe cellulitis, redness and warmth of his entire right leg from his knee to his foot. He did not respond to vancomycin. Cefazolin was switched to daptomycin, which greatly improved his wound care. His redness is 50% improved on discharge. He will need outpatient IV antibiotics with daptomycin to continue for at least another 10 days. Follow up with Dr. Pool, infectious disease consult, as well as me. Other medications were not changed. His chest x-ray was negative, as he had a chronic cough in the hospital, which was improved with some updraft treatments p.r.n. FANI / FILOMENA: [id number] /
--- NOTE | 2019-02-07 20:37 | PN ---
PROGRESS NOTE DATE OF SERVICE: 02/07/2019 This patient was seen again on 02/07/2019. He has been hemodynamically stable. He is less short of breath. On physical examination, his vitals are stable. He is afebrile. His chest is clear. Cardiovascular system is in S1, S2. Abdomen is soft. There is erythema of the right lower extremity, but it is less than yesterday. IMPRESSION AT THIS TIME: 1. Right lower extremity cellulitis. 2. Obesity with possible obesity hypoventilation syndrome and obstructive sleep apnea. 3. Asthma. Continue bronchodilators, aerosolized steroids. Agree with discharge planning. If motivated, would recommend an outpatient sleep study. MMODL / IJN: [id number] /
--- NOTE | 2019-02-10 10:55 | CDI ---
Documentation Clarification Form 2nd Request Date: 02/07/2019 1:41:00 PM From: Marsha Rosales RN, CCDS Admit Date: 02/01/2019 2:25:00 AM Patient Name: Stan Sutherland Visit Number: [id number] Discharge Date: 02/07/2019 4:46:00 PM ATTENTION: The Clinical Documentation Specialists (CDI) and [facility] Coding Staff appreciate your assistance in clarifying documentation. Please respond to the clarification below the line at the bottom and electronically sign. The CDI & [facility] Coding staff will review the response and follow-up if needed. Please note: Queries are made part of the Legal Health Record. If you have any questions, please contact the author of this message via ITS. Dr. Riley Espinal Asthma is documented in the Pulmonary Consult and Progress Note and requires further specificity. History/risk factors: Morbid Obesity with possible Obesity Hypoventilation syndrome, cor pulmonale, Acute cellulitis of lower extremity on multiple Antibiotics Clinical Indicators: 02/04 Pulmonary Consult: "Asthma with mild exacerbation." 02/06 Pulmonary Progress note: " mild asthma." 01/31 CXR:"No active cardiopulmonary disease" Vital Signs: Patient maintained on 2L nasal cannula entire stay with Respiratory rates of 18-22 Treatment: Medication: Duoneb INH QID, Pulmicort INH BID, Singuliar 10 mg po Q HS Consults: Pulmonary In your professional opinion, can you please further specify the following, if known? Acute Exacerbation Status asthmaticus Acute lower respiratory infection COPD (specify with or without exacerbation) Chronic obstructive bronchitis Other, please specify ___ Unable to determine Severity Mild intermittent Mild persistent Moderate persistent Severe persistent Other, please specify ____ Unable to determine Form or Type Cough variant Childhood Exercise induced bronchospasm Extrinsic allergic Idiosyncratic Intrinsic nonallergic Late-onset Mixed Other, please specify____ Unable to determine (Last Revision: June 2017) MTDD
--- NOTE | 2019-02-10 10:58 | CDI ---
Documentation Clarification Form 2nd Request Date: 02/07/2019 2:00:00 PM From: Marsha Rosales RN, CCDS Admit Date: 02/01/2019 2:25:00 AM Patient Name: Stan Sutherland Visit Number: [id number] Discharge Date: 02/07/2019 4:46:00 PM ATTENTION: The Clinical Documentation Specialists (CDI) and [facility] Coding Staff appreciate your assistance in clarifying documentation. Please respond to the clarification below the line at the bottom and electronically sign. The CDI & [facility] Coding staff will review the response and follow-up if needed. Please note: Queries are made part of the Legal Health Record. If you have any questions, please contact the author of this message via ITS. Dr. France Espinal Respiratory Failure has been documented and requires further specificity and clinical support. History/Risk Factors: polycystic kidney disease, enlarged heart, cellulitis, sleep apnea, Tobacco use: none Clinical Indicators: 02/04 Pulmonary Consult: Acute on chronic respiratory failure, in part due to obesity hypoventilation syndrome." Vital signs: temp 99.3, hr 101, RR 21, B/P 128/72, spo2 99% ra Pulse oximetry: consistently 96-99% on room air to 2L nasal cannula 04/09/18 Nephrology Lung/Breathing assessment: "LUNGS: Lungs are clear to auscultation and percussion. Breath sounds decreased." Treatment: Breathing TX: Duoneb INH QID, Pulmicort INH BID Pulse ox per unit protocol O2: 2L nasal cannula In your professional opinion, can you please clarify if these findings signify one of the following conditions? Acute on Chronic Respiratory Failure ruled out Acute on Chronic Hypoxic Respiratory Failure Acute on Chronic Hypercapnic Respiratory Failure Chronic Respiratory Failure Acute Respiratory Distress Acute Respiratory Insufficiency Other Diagnosis, please specify Unable to determine Specificity: If known, further specify (if known): With hypercapnia? (pCO2 >50 and pH <7.35) With hypoxia? (pO2 <60 mm Hg or SpO2 <91% on room air) (Last Query Form Revision: November 2018) MTDD
--- NOTE | 2019-02-16 07:18 | CDI ---
Documentation Clarification Form 3rd Request Date: 02/07/2019 1:41:00 PM From: Marsha Rosales RN, CCDS Admit Date: 02/01/2019 2:25:00 AM Patient Name: Stan Sutherland Visit Number: [id number] Discharge Date: 02/07/2019 4:46:00 PM ATTENTION: The Clinical Documentation Specialists (CDI) and [facility] Coding Staff appreciate your assistance in clarifying documentation. Please respond to the clarification below the line at the bottom and electronically sign. The CDI & [facility] Coding staff will review the response and follow-up if needed. Please note: Queries are made part of the Legal Health Record. If you have any questions, please contact the author of this message via ITS. Dr. Riley Espinal Asthma is documented in the Pulmonary Consult and Progress Note and requires further specificity. History/risk factors: Morbid Obesity with possible Obesity Hypoventilation syndrome, cor pulmonale, Acute cellulitis of lower extremity on multiple Antibiotics Clinical Indicators: 02/04 Pulmonary Consult: "Asthma with mild exacerbation." 02/06 Pulmonary Progress note: " mild asthma." 01/31 CXR:"No active cardiopulmonary disease" Vital Signs: Patient maintained on 2L nasal cannula entire stay with Respiratory rates of 18-22 Treatment: Medication: Duoneb INH QID, Pulmicort INH BID, Singuliar 10 mg po Q HS Consults: Pulmonary In your professional opinion, can you please further specify the following, if known? Acute Exacerbation Status asthmaticus Acute lower respiratory infection COPD (specify with or without exacerbation) Chronic obstructive bronchitis Other, please specify ___ Unable to determine Severity Mild intermittent Mild persistent Moderate persistent Severe persistent Other, please specify ____ Unable to determine Form or Type Cough variant Childhood Exercise induced bronchospasm Extrinsic allergic Idiosyncratic Intrinsic nonallergic Late-onset Mixed Other, please specify____ Unable to determine (Last Revision: June 2017) MTDD
--- NOTE | 2019-02-16 07:21 | CDI ---
Documentation Clarification Form 3rd Request Date: 02/07/2019 2:00:00 PM From: Marsha Rosales RN, CCDS Admit Date: 02/01/2019 2:25:00 AM Patient Name: Stan Sutherland Visit Number: [id number] Discharge Date: 02/07/2019 4:46:00 PM ATTENTION: The Clinical Documentation Specialists (CDI) and [facility] Coding Staff appreciate your assistance in clarifying documentation. Please respond to the clarification below the line at the bottom and electronically sign. The CDI & [facility] Coding staff will review the response and follow-up if needed. Please note: Queries are made part of the Legal Health Record. If you have any questions, please contact the author of this message via ITS. Dr. France Espinal Respiratory Failure has been documented and requires further specificity and clinical support. History/Risk Factors: polycystic kidney disease, enlarged heart, cellulitis, sleep apnea, Tobacco use: none Clinical Indicators: 02/04 Pulmonary Consult: Acute on chronic respiratory failure, in part due to obesity hypoventilation syndrome." Vital signs: temp 99.3, hr 101, RR 21, B/P 128/72, spo2 99% ra Pulse oximetry: consistently 96-99% on room air to 2L nasal cannula 04/09/18 Nephrology Lung/Breathing assessment: "LUNGS: Lungs are clear to auscultation and percussion. Breath sounds decreased." Treatment: Breathing TX: Duoneb INH QID, Pulmicort INH BID Pulse ox per unit protocol O2: 2L nasal cannula In your professional opinion, can you please clarify if these findings signify one of the following conditions? Acute on Chronic Respiratory Failure ruled out Acute on Chronic Hypoxic Respiratory Failure Acute on Chronic Hypercapnic Respiratory Failure Chronic Respiratory Failure Acute Respiratory Distress Acute Respiratory Insufficiency Other Diagnosis, please specify Unable to determine Specificity: If known, further specify (if known): With hypercapnia? (pCO2 >50 and pH <7.35) With hypoxia? (pO2 <60 mm Hg or SpO2 <91% on room air) (Last Query Form Revision: November 2018) MTDD
== END 2019-02-07 16:46 | disposition home health service (06) | DRG 593 ==
LOC: EC 19:21 → 4MS4W 02-01 02:25
PROVIDERS: ADMIT Family Medicine; ATTEND Family Medicine
PROC: 05HD33Z Insertion of Infusion Device into Right Cephalic Vein, Percutaneous Approach (ICD-10-PCS; principal; 2019-02-07 11:45)
DX: L97.819 Non-pressure chronic ulcer of other part of right lower leg with unspecified severity (principal); L03.115 Cellulitis of right lower limb; N17.9 Acute kidney failure, unspecified; Q61.3 Polycystic kidney, unspecified; Z68.45 Body mass index [BMI] 70 or greater, adult; J45.21 Mild intermittent asthma with (acute) exacerbation; E66.01 Morbid (severe) obesity due to excess calories; D63.8 Anemia in other chronic diseases classified elsewhere; E03.9 Hypothyroidism, unspecified; E86.0 Dehydration; E87.70 Fluid overload, unspecified; G47.33 Obstructive sleep apnea (adult) (pediatric); I10 Essential (primary) hypertension; I27.81 Cor pulmonale (chronic); I89.0 Lymphedema, not elsewhere classified; N18.9 Chronic kidney disease, unspecified; Z74.01 Bed confinement status; Z79.890 Hormone replacement therapy; Z79.899 Other long term (current) drug therapy; Z90.5 Acquired absence of kidney
CPT/HCPCS: 36410; 36415; 71046; 76770; 76937; 80048; 80053; 81001; 83605; 84443; 85025; 85027; 87040; 87086; 94640; 94760; 96365; 96366; 96372; 96375; 99285

== ENCOUNTER → 2019-02-09 | Day surgery (SDC) | payer MEDICARE, OTHER | LOC: CATHCVL 10:08 | PROVIDERS: ATTEND Internal Medicine Infectious Disease | DX: L03.115 Cellulitis of right lower limb (principal); E66.01 Morbid (severe) obesity due to excess calories; R41.3 Other amnesia; G47.30 Sleep apnea, unspecified; Z90.5 Acquired absence of kidney; Z79.890 Hormone replacement therapy; Z79.899 Other long term (current) drug therapy; Z87.448 Personal history of other diseases of urinary system | CPT/HCPCS: 36410; 76937; C1751 ==

== ENCOUNTER 2020-05-01 11:37 | Inpatient (IN) | payer MEDICARE, OTHER ==
--- NOTE | 2020-05-01 15:30 | XR ---
EXAMINATION TYPE: XR chest 2V DATE OF EXAM: 05/01/2020 COMPARISON: Chest x-ray January 31, 2019 HISTORY: Shortness of breath. TECHNIQUE: Frontal and lateral views of the chest are obtained. FINDINGS: Persistent low lung volumes. There is no focal air space opacity, pleural effusion, or pneu mothorax seen. The cardiac silhouette size remains enlarged. Lateral view remains suboptimal due to patient's large body habitus. The osseous structures are intact. IMPRESSION: Cardiomegaly and low lung volumes redemonstrated. No significant change from prior.
[2020-05-01 15:56] LABS: Basophils # (A) 0.1 k/uL (0-0.2); Basophils % (A) 1 %; Eosinophils # (A) 0.1 k/uL (0-0.7); Eosinophils % (A) 1 %; HCT 40.4 % (39.0-53.0); HGB 12.9 gm/dL (13.0-17.5); Lymphocytes # (A) 1.3 k/uL (1.0-4.8); Lymphocytes % (A) 14 %; MCH 27.2 pg (25.0-35.0); MCHC 31.8 g/dL (31.0-37.0); MCV 85.4 fL (80.0-100.0); Mean Platelet Volume 8.4; Monocytes # (A) 0.5 k/uL (0-1.0); Monocytes % (A) 5 %; Neutrophils # (A) 7.4 k/uL (1.3-7.7); Neutrophils % (A) 79 %; Platelet Count 255 k/uL (150-450); RBC 4.74 m/uL (4.30-5.90); RDW 15.1 % (11.5-15.5); WBC 9.5 k/uL (3.8-10.6)
[2020-05-01] MEDS: BUMETANIDE 0.25 MG/ML 10 ML VIAL IV SCH (16:25)
[2020-05-01] MEDS: atenoloL 25 MG TAB PO SCH (17:39)
[2020-05-01] MEDS: SODIUM CHLORIDE 0.9% 1,000 ML IV SCH (17:40)
[2020-05-01] MEDS ORDERED: CEPHALEXIN 500 MG CAP PO SCH (18:00)
[2020-05-01 23:29] LABS: Hemoglobin A1C 5.2 % (4.0-6.0)
[2020-05-01 23:36] LABS: African American GFR (CKD) 126.9 (60.0-200.0); Albumin 4.3 g/dL (3.80-4.90); Albumin/Globulin Ratio 2.05 (1.60-3.17); Anion Gap 6.8 mmol/L (4.00-12.00); BUN/Creat Ratio 15.56 Ratio (12.00-20.00); Carbon Dioxide 31.2 mmol/L (21.6-31.8); Globulin 2.1 g/dL (1.6-3.3); Non-African American GFR(CKD) 109.5 (60.0-200.0); Potassium 4.5 mmol/L (3.5-5.5); Total Bilirubin 0.3 mg/dL (0.3-1.2); Total Protein 6.4 g/dL (6.2-8.2)
--- NOTE | 2020-05-02 01:39 | CONS ---
CONSULTATION DATE OF SERVICE: 05/01/2020. REASON FOR CONSULTATION: Lower extremity cellulitis. HISTORY OF PRESENT ILLNESS: The patient is a 34-year-old male who has been admitted to the hospital from his PCP office with concern for increasing swelling to lower extremity and concern for possible cellulitis. The patient did have chronic bilateral lower extremity swelling. Apparently, mentioned for the last few days, he is having more swelling as well as restlessness to the leg, mostly the right leg. The patient did have some dull aching pain. Intensity about 5 to 6 out of 10. No radiation. The patient denies having any fever or any chills. Currently, did not have any open wound and no diarrhea. The patient was admitted to the hospital. The patient was started on cefazolin. Infectious Disease was consulted for further management of antibiotic therapy. REVIEW OF SYSTEMS: Positive points have been mentioned in HPI. Rest of systems negative. PAST MEDICAL HISTORY: Significant for polycystic kidney disease, sleep apnea, and lower extremity cellulitis. PAST SURGICAL HISTORY: Nephrectomy. SOCIAL HISTORY: Denies smoking, drinking or drug use. FAMILY HISTORY: No pertinent findings noticed. ALLERGIES: No known drug allergies. MEDICATIONS: Include the patient is currently on: Tenormin, Bumex, cefazolin 1 g q.8 hours, Synthroid, and IV fluid. PHYSICAL EXAMINATION: Blood pressure is 137/75, pulse of 77, temp is 97.7, he is 96% on 2 L nasal cannula. General description is a middle-aged male lying in bed in no distress. No tachypnea or accessory muscles of respiration use. HEENT: Examination shows no pallor or scleral icterus. Oral mucosal membranes are dry. NECK: Trachea central. No thyromegaly. LUNGS: Unlabored breathing. Clear to auscultation anteriorly. No wheeze or crackles. HEART: S1, S2. Regular rate and rhythm. ABDOMEN: Soft, no tenderness. No guarding or rigidity. EXTREMITIES: Diffuse swelling of the lower extremities with minimal redness right leg. No skin breakdown or drainage. NEUROLOGICAL: Patient is awake, alert, oriented times three. Mood and affect normal. LABS: Hemoglobin is 12.1. White count 9.5. D-dimer 0.54. Troponin is normal. 213. DIAGNOSTIC IMPRESSION AND PLAN: Patient admitted to hospital with increasing swelling in the lower extremity and concern for possible cellulitis in this patient with diffuse swelling, redness, possible mild streptococcal cellulitis. The patient currently does not have any open wound and does not look toxic. PLAN: 1. Cefazolin 1 g q.8 hours to continue. 2. May benefit from gentle diuresis. 3. Nilo wrap to the leg to keep the swelling down. 4. We will follow on clinical condition to further adjust medication if needed. Thank you for this consultation. We will follow this patient with you. MMODL / IJN: [id number] /
[2020-05-02] MEDS: BUMETANIDE 0.25 MG/ML 10 ML VIAL IV SCH ×2 (04:43→15:44)
[2020-05-02] MEDS: LEVOTHYROXINE 75 MCG TAB PO SCH (05:33)
[2020-05-02] MEDS: atenoloL 25 MG TAB PO SCH (08:44)
--- NOTE | 2020-05-02 11:01 | ECHOF ---
Referral Reason:chf MEASUREMENTS -------- HEIGHT: 162.6 cm WEIGHT: 237.7 kg BP: Ao Diam: 3.1 cm (2.0 - 3.7) AV Cusp: 2.3 cm (1.5 - 2.6) LA Diam: 3.6 cm (2.7 - 3.8) MV EXCURSION: 16.226 mm (> 18.000) MV EF SLOPE: 73 mm/s (70 - 150) EPSS: 1.1 cm MV E German: 0.58 m/s MV DecT: 193 ms MV A German: 0.38 m/s MV E/A Ratio: 1.54 RAP: 5.00 mmHg RVSP: 8.53 mmHg FINDINGS -------- Sinus rhythm. This was a technically difficult study with suboptimal views. Morbid Obesity This was a techncall y difficult study with suboptimal views, , Definity utilized for enhancement of images. Suboptimal test with Lumason. Unable to calculate EF. The RV was not well visualized. The left atrium was not well visualized. The right atrium was not well visualized. The aortic valve was not well visualized. The mitral valve was not well visualized. The tricuspid valve was not well visualized. The pulmonic valve was not well visualized. There is no pericardial effusion. CONCLUSIONS -------- 1. This was a technically difficult study with suboptimal views. 2. This was a techncally difficult study with suboptimal views, , Definity utilized for enhancement o f images. 3. Suboptimal test with Lumason. Unable to calculate EF. 4. The aortic valve was not well visualized. 5. The mitral valve was not well visualized. 6. The tricuspid valve was not well visualized. 7. The pulmonic valve was not well visualized. DESIGN PRINTING MACHINE SET UP OPERATOR: Stephie Colby RDCS
--- NOTE | 2020-05-02 11:12 | P.GSCN ---
History of Present Illness Consult date: 05/02/20 History of present illness: CHIEF COMPLAINT: Bilateral lower extremity cellulitis HISTORY OF PRESENT ILLNESS: This is a 34-year-old male with a known history of morbid obesity with a BMI of 89.9. Patient also has a history of polycystic any disease, enlarged heart, sleep apnea and right nephrectomy. Patient is a direct admit from Dr. Mantilla's office for bilateral lower extremity swelling and cellulitis. He's followed by infectious disease and on antibiotics. Surgical consult was placed for evaluation of gastric sleeve. Patient is interested in weight loss. Patient denies any abdominal pain, fever chills or sweats. Patient seen and examined with Dr. Yost PAST MEDICAL HISTORY: See list. PAST SURGICAL HISTORY: See list. MEDICATIONS: See list. ALLERGIES: See list. SOCIAL HISTORY: No illicit drug use. REVIEW OF SYSTEMS: CONSTITUTIONAL: Denies fever or chills. HEENT: Denies blurred vision, vision changes, or eye pain. Denies hemoptysis CARDIOVASCULAR: Denies chest pain or pressure. RESPIRATORY: No shortness of breath. GASTROINTESTINAL: See HPI for pertinent findings HEMATOLOGIC: Denies bleeding disorders. GENITOURINARY: Denies any blood in urine or increased urinary frequency. SKIN: Denies pruitis. Denies rash. PHYSICAL EXAM: VITAL SIGNS: Reviewed GENERAL: Well-developed in no acute distress. HEENT: No sclera icterus. Extraocular movements grossly intact. Moist buccal mucosa. Head is atraumatic, normocephalic. No nasal drainage. ABDOMEN: Soft. Obese. Nondistended. Nontender NEUROLOGIC: Alert and oriented. Cranial nerves II through XII grossly intact. LABORATORY DATA: WBC 9.5 hemoglobin 12.9 platelets 255 A1c 5.2 IMAGING: ASSESSMENT: 1. Morbid obesity, BMI of 89.9 2. Bilateral lower extremity cellulitis followed by ID PLAN: -Continue supportive care -Recommend that patient follows up in the bariatric clinic for further workup regarding possible sleeve gastrectomy Physician Diesel Engine Fitter note has been reviewed by physician. Signing provider agrees with the documented findings, assessment, and plan of care. Past Medical History Past Medical History: Memory Impairment, Skin Disorder Additional Past Medical History / Comment(s): 1 kidney polycystic kidney disease age 2. enlarged heart. 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 History of Any Multi-Drug Resistant Organisms: None Reported Additional Past Surgical History / Comment(s): right kidney removed age 2 Past Anesthesia/Blood Transfusion Reactions: No Reported Reaction Past Psychological History: No Psychological Hx Reported Smoking Status: Never smoker Past Alcohol Use History: None Reported Past Drug Use History: None Reported Medications and Allergies Home Medications Medication Instructions Recorded Confirmed Type Bumetanide [BUMEX] 2 mg PO DAILY 02/01/19 05/01/20 History Levothyroxine Sodium [Synthroid] 150 mcg PO QAM 02/01/19 05/01/20 History atenoloL [Tenormin] 25 mg PO DAILY 02/01/19 05/01/20 History Acetaminophen Tab [Tylenol] 325 - 650 mg PO DAILY PRN 05/01/20 05/01/20 History Unknown Otc Allergy Pill 1 tab PO DAILY PRN 05/01/20 05/01/20 History Allergies Allergy/AdvReac Type Severity Reaction Status Date / Time No Known Allergies Allergy Verified 05/01/20 14:45 Surgical - Exam Vital Signs Temp Pulse Resp BP Pulse Ox 98.2 F 89 22 164/85 99 05/01/20 13:44 05/01/20 13:44 05/01/20 13:44 05/01/20 13:44 05/01/20 13:44 Results - Labs 05/01/20 15:39 05/01/20 15:39 Abnormal Lab Results - Last 24 Hours (Table) 05/01/20 Range/Units 15:39 Hgb 12.9 L (13.0-17.5) gm/dL Diabetes panel 05/01/20 05/01/20 Range/Units 15:39 15:39 Sodium 142 (135-145) mmol/L Potassium 4.5 (3.5-5.5) mmol/L Chloride 104 (96-109) mmol/L Carbon Dioxide 31.2 (21.6-31.8) mmol/L BUN 14.0 (9.0-27.0) mg/dL Creatinine 0.9 (0.6-1.5) mg/dL Glucose 87 (70-110) mg/dL Hemoglobin A1c 5.2 (4.0-6.0) % Calcium 9.0 (8.7-10.3) mg/dL AST 23 (14-35) U/L ALT 30 (10-49) U/L Alkaline Phosphatase 85 (41-126) U/L Total Protein 6.4 (6.2-8.2) g/dL Albumin 4.30 (3.80-4.90) g/dL Thyroid panel 05/01/20 Range/Units 15:39 TSH 1.120 (0.465-4.680) mIU/L Calcium panel 05/01/20 Range/Units 15:39 Calcium 9.0 (8.7-10.3) mg/dL Albumin 4.30 (3.80-4.90) g/dL Pituitary panel 05/01/20 05/01/20 Range/Units 15:39 15:39 Sodium 142 (135-145) mmol/L Potassium 4.5 (3.5-5.5) mmol/L Chloride 104 (96-109) mmol/L Carbon Dioxide 31.2 (21.6-31.8) mmol/L BUN 14.0 (9.0-27.0) mg/dL Creatinine 0.9 (0.6-1.5) mg/dL Glucose 87 (70-110) mg/dL Calcium 9.0 (8.7-10.3) mg/dL TSH 1.120 (0.465-4.680) mIU/L Adrenal panel 05/01/20 Range/Units 15:39 Sodium 142 (135-145) mmol/L Potassium 4.5 (3.5-5.5) mmol/L Chloride 104 (96-109) mmol/L Carbon Dioxide 31.2 (21.6-31.8) mmol/L BUN 14.0 (9.0-27.0) mg/dL Creatinine 0.9 (0.6-1.5) mg/dL Glucose 87 (70-110) mg/dL Calcium 9.0 (8.7-10.3) mg/dL Total Bilirubin 0.3 (0.3-1.2) mg/dL AST 23 (14-35) U/L ALT 30 (10-49) U/L Alkaline Phosphatase 85 (41-126) U/L Total Protein 6.4 (6.2-8.2) g/dL Albumin 4.30 (3.80-4.90) g/dL
--- NOTE | 2020-05-02 13:51 | P.CRDCN ---
History of Present Illness History of present illness: HISTORY OF PRESENTING ILLNESS This is a pleasant 34-year-old male past medical history significant for hypertension, mental impairment, obstructive sleep apnea and morbid obesity. He denies prior history of coronary artery disease and does not follow in the office with a supervisor assembly stock. We have been asked to see in consultation for heart failure. He was sent to the hospital as a direct admit from his primary care physician secondary to lower extremity swelling. He is a poor historian. He denies shortness of breath, chest pain, dizziness or palpitations. He states he was sent here for leg swelling. An echocardiogram was ordered, however was inconclusive due to body habitus and inability to visualize cardiac structure. He has been initiated on IV antibiotics and IV diuretics. Chest xray reveals cardiomegaly with no acute cardiopulmonary process. Laboratory data reviewed, CBC unremarkable, d-dimer 0.54, sodium 142, potassium 4.5, creatinine 0.9, troponin negative x1, BNP 213 and TSH 1.12. Current daily cardiac medications include atenolol 25 mg daily and bumex 2 mg daily. REVIEW OF SYSTEMS At the time of my exam: CONSTITUTIONAL: Denies fever or chills. CARDIOVASCULAR: Denies chest pain, shortness of breath, orthopnea, PND or palpitations. RESPIRATORY: Denies cough. GASTROINTESTINAL: Denies abdominal pain, diarrhea, constipation, nausea or vomiting. MUSCULOSKELETAL: Denies myalgias. NEUROLOGIC: Denies numbness, tingling, headacbe or weakness. ENDOCRINE: Denies fatigue, weight change, polydipsia or polyurina. GENITOURINARY: Denies burning, hematuria or urgency with micturation. HEMATOLOGIC: Denies history of anemia or bleeding. PHYSICAL EXAMINATION Blood pressure 153/92 heart rate 71 afebrile and maintaining oxygen saturation on room air. CONSTITUTIONAL: No apparent distress. Morbidly obese. HEENT: Head is normocephalic. Pupils are equal, round. Sclerae anicteric. Mucous membranes of the mouth are moist. No JVD. No carotid bruit. CHEST EXAMINATION: Lungs are clear to auscultation. No chest wall tenderness is noted on palpation or with deep breathing. HEART EXAMINATION: Regular rate and rhythm. S1, S2 heard. No murmurs, gallops or rub. ABDOMEN: Soft, nontender. Positive bowel sounds. EXTREMITIES: Diffuse bilateral lower extremity swelling with hard skin and dimpling throughout, mild erythema noted. NEUROLOGIC EXAMINATION: Patient is awake, alert and oriented. ASSESSMENT Lower extremity cellulitis Hypertension Obstructive sleep apnea Morbid obesity, BMI 89 Mental delay PLAN Continue with IV diuresis for lower extremity swelling secondary to cellulitus. Clinically he is not in heart failure. Thank you kindly for this consultation. Nurse Practitioner note has been reviewed, I agree with a documented findings and plan of care. Patient was seen and examined. Past Medical History Past Medical History: Memory Impairment, Skin Disorder Additional Past Medical History / Comment(s): 1 kidney polycystic kidney disease age 2. enlarged heart. 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 History of Any Multi-Drug Resistant Organisms: None Reported Additional Past Surgical History / Comment(s): right kidney removed age 2 Past Anesthesia/Blood Transfusion Reactions: No Reported Reaction Past Psychological History: No Psychological Hx Reported Smoking Status: Never smoker Past Alcohol Use History: None Reported Past Drug Use History: None Reported Medications and Allergies Home Medications Medication Instructions Recorded Confirmed Type Bumetanide [BUMEX] 2 mg PO DAILY 02/01/19 05/01/20 History Levothyroxine Sodium [Synthroid] 150 mcg PO QAM 02/01/19 05/01/20 History atenoloL [Tenormin] 25 mg PO DAILY 02/01/19 05/01/20 History Acetaminophen Tab [Tylenol] 325 - 650 mg PO DAILY PRN 05/01/20 05/01/20 History Unknown Otc Allergy Pill 1 tab PO DAILY PRN 05/01/20 05/01/20 History Allergies Allergy/AdvReac Type Severity Reaction Status Date / Time No Known Allergies Allergy Verified 05/01/20 14:45 Physical Exam Vitals: Vital Signs Temp Pulse Pulse Resp BP BP Pulse Ox 05/02/20 08:00 98.3 F 71 18 153/92 96 05/02/20 01:49 97.6 F 64 19 123/79 99 05/01/20 19:50 89 77 17 05/01/20 19:38 97.7 F 77 17 137/75 96 05/01/20 13:44 98.2 F 89 22 164/85 99 Intake and Output 05/01/20 05/02/20 05/02/20 22:59 06:59 14:59 Intake Total 600 Balance 600 Intake: Intake, IV Titration 600 Amount Sodium Chloride 0.9% 1, 600 000 ml @ 50 mls/hr IV . Q20H BRIANDA Rx#:[id number] Other: Voiding Method Toilet # Voids 3 3 Results 05/01/20 15:39 05/01/20 15:39 Cardiac Enzymes 05/01/20 05/01/20 Range/Units 15:39 15:39 AST 23 (14-35) U/L Troponin I <0.012 (0.000-0.034) ng/mL CBC 05/01/20 Range/Units 15:39 WBC 9.5 (3.8-10.6) k/uL RBC 4.74 (4.30-5.90) m/uL Hgb 12.9 L (13.0-17.5) gm/dL Hct 40.4 (39.0-53.0) % Plt Count 255 (150-450) k/uL Comprehensive Metabolic Panel 05/01/20 Range/Units 15:39 Sodium 142 (135-145) mmol/L Potassium 4.5 (3.5-5.5) mmol/L Chloride 104 (96-109) mmol/L Carbon Dioxide 31.2 (21.6-31.8) mmol/L BUN 14.0 (9.0-27.0) mg/dL Creatinine 0.9 (0.6-1.5) mg/dL Glucose 87 (70-110) mg/dL Calcium 9.0 (8.7-10.3) mg/dL AST 23 (14-35) U/L ALT 30 (10-49) U/L Alkaline Phosphatase 85 (41-126) U/L Total Protein 6.4 (6.2-8.2) g/dL Albumin 4.30 (3.80-4.90) g/dL Current Medications Generic Name Dose Route Start Last Admin Trade Name Freq PRN Reason Stop Dose Admin Atenolol 25 mg 05/01/20 17:15 05/02/20 08:44 Atenolol 25 Mg Tab PO 25 mg DAILY BRIANDA Administration Bumetanide 0.25 mg 05/01/20 14:30 05/02/20 04:43 Bumetanide 0.25 Mg/Ml 10 Ml Vial IV 0.25 mg Q12H BRIANDA Administration Cefazolin Sodium 1,000 mg/ 50 mls @ 100 mls/hr 05/01/20 18:00 05/02/20 08:44 Sodium Chloride IVPB 100 mls/hr Q8H BRIANDA Administration Sodium Chloride 1,000 mls @ 50 mls/hr 05/01/20 17:15 05/01/20 17:40 Saline 0.9% IV 50 mls/hr .Q20H BRIANDA Administration Levothyroxine Sodium 150 mcg 05/02/20 06:30 05/02/20 05:33 Levothyroxine 75 Mcg Tab PO 150 mcg DAILY@0630 BRIANDA Administration Intake and Output 05/01/20 05/02/20 05/02/20 22:59 06:59 14:59 Intake Total 600 Balance 600 Intake: Intake, IV Titration 600 Amount Sodium Chloride 0.9% 1, 600 000 ml @ 50 mls/hr IV . Q20H BRIANDA Rx#:[id number] Other: Voiding Method Toilet # Voids 3 3 05/01/20 15:39 05/01/20 15:39
--- NOTE | 2020-05-02 14:21 | HP ---
HISTORY AND PHYSICAL A 34-year-old was admitted with concerns for severe extremity swelling, 60-pound weight gain over the past few months and severe redness and swelling of the lower extremities, started on IV cefazolin, admitted him in the hospital and IV Bumex for severe fluid retention. He has severe redness and swelling to the entire legs from the feet all the way up to the mid knee. REVIEW OF SYSTEMS: Fourteen-point review of systems positive for dyspnea on exertion at rest and with any exertion. PAST MEDICAL HISTORY: Polycystic kidney disease, sleep apnea, diastolic heart failure, dementia, 60- pound weight gain. SURGICAL HISTORY: Nephrectomy. SOCIAL HISTORY: Does a lot of late night eating. Does not smoke or drink alcohol or do illicit drugs. ALLERGIES: Negative. MEDICATIONS: Medications include Tenormin, Bumex, cefazolin, Synthroid, IV fluids. PHYSICAL EXAMINATION: He has morbid obesity. His weight is over 500 pounds. He is 96% on 2 L, temperature 97.7, pulse 77, blood pressure 130s over 70s. EYES: He has no scleral icterus. No jaundice. Redness of extremities. NECK: Supple. No mass. LUNGS: Are clear. No rales, rhonchi or wheeze. HEART: S1, S2. ABDOMEN: Soft, nontender. EXTREMITIES: Diffuse swelling of the lower extremities. Minimal redness of right leg. NEUROLOGIC: Alert and oriented x3. Clinically, he is short of breath with any exertion. Chest x-ray shows cardiomegaly. D-dimer is negative. Troponin is negative. White count 9 5, hemoglobin 12.1. ASSESSMENT: 1. Morbid obesity. 2. Obstructive sleep apnea. 3. Cellulitis of lower extremities. Continue with cefazolin 1 gram q.8 hours. On Bumex for diuresis. Await for Cardiology to see him. Echo unable to get ejection fraction. Wait for their recommendation on diuresis. Continue with broad-spectrum antibiotics and Bumex. Wait for Cardiology and Infectious Disease recommendations. MMODL / IJN: [id number] /
[2020-05-02] MEDS: SODIUM CHLORIDE 0.9% 1,000 ML IV SCH (14:25)
--- NOTE | 2020-05-02 17:02 | PN ---
PROGRESS NOTE This is a 34-year-old white male who remains on IV Bumex q.12 hours for diastolic heart failure. Echo could not read his ejection fraction. He is on IV cefazolin for cellulitis of the legs. He has morbid obesity, 60-pound weight gain. He feels like his cough has improved since he has been on the IV Lasix since admission. CARDIOVASCULAR: S1, S2. LUNGS: Clear. GI: Soft. HEMATOLOGY: Negative Homans. PSYCH: Fair mood and affect. Surgery is going to follow with him as an outpatient for lap band. Cardiology said continue with IV diuresis. Lower extremity swelling secondary to cellulitis. Continue with sleep apnea, hypertension, mental delay, possible discharge home tomorrow. MMODL / IJN: [id number] /
--- NOTE | 2020-05-02 22:45 | PN ---
PROGRESS NOTE DATE OF SERVICE: 05/02/2020. REASON FOR FOLLOWUP: Lower extremity cellulitis. INTERIM HISTORY: The patient is currently afebrile, has been breathing comfortably. Denies having any chest pain or cough. No abdominal pain. No pain in the lower extremity. PHYSICAL EXAMINATION: Blood pressure 126/85, pulse of 69, temperature 98.8. He is 98% on 2 L nasal cannula. General description is a middle-aged male up in the chair in no distress. Respiratory system: Unlabored breathing, decreased breath sounds in the base. Heart S1, S2. Regular rate and rhythm. Abdomen soft, no tenderness. Legs with minimal swelling and redness and mild warmth. Hemoglobin is 12.1, white count 9.5, BUN of 14, creatinine 1.9. DIAGNOSTIC IMPRESSION AND PLAN: Patient admitted to the hospital with increased swelling lower extremity and concern for possible cellulitis. The patient is covered with cefazolin. Continue Nilo wrap in order to keep the swelling down and monitor clinical course closely. MMODL / IJN: [id number] / FOUZIA
[2020-05-03] MEDS: LEVOTHYROXINE 75 MCG TAB PO SCH (05:50)
[2020-05-03] MEDS: BUMETANIDE 0.25 MG/ML 10 ML VIAL IV SCH (05:50)
[2020-05-03] MEDS: SODIUM CHLORIDE 0.9% 1,000 ML IV SCH (07:40)
[2020-05-03] MEDS: atenoloL 25 MG TAB PO SCH (07:40)
[2020-05-03 07:41] VITALS: BP 136/81; PULSE 106; RESP 17; TEMP 98.3
[2020-05-03] MEDS ORDERED: CEPHALEXIN 500 MG CAP PO SCH (09:00)
--- NOTE | 2020-05-03 10:26 | P.PN ---
Subjective Progress Note Date: 05/03/20 CHIEF COMPLAINT: Bilateral lower extremity cellulitis HISTORY OF PRESENT ILLNESS: Patient is followed for his morbid obesity. Patient reports some improvement in his cellulitis. ID is following. He is on antibiotics. He denies any nausea or vomiting. Afebrile. PHYSICAL EXAM: VITAL SIGNS: Reviewed. GENERAL: Well-developed in no acute distress. HEENT: No sclera icterus. Extraocular movements grossly intact. Moist buccal mucosa. Head is atraumatic, normocephalic. ABDOMEN: Soft. Obese. Nondistended. Nontender. NEUROLOGIC: Alert and oriented. Cranial nerves II through XII grossly intact. ASSESSMENT: 1. Morbid obesity, BMI of 89.9 2. Bilateral lower extremity cellulitis followed by ID PLAN: -Continue supportive care -Recommend that patient follows up in the bariatric clinic for further workup regarding possible sleeve gastrectomy Physician Biztalk Software Developer note has been reviewed by physician. Signing provider agrees with the documented findings, assessment, and plan of care. Objective - Vital Signs Vital signs: Vital Signs Temp 98.3 F 05/03/20 07:05 Pulse 106 H 05/03/20 07:05 Resp 17 05/03/20 07:05 BP 136/81 05/03/20 07:05 Pulse Ox 99 05/03/20 07:05 Intake & Output 05/02/20 05/03/20 05/03/20 18:59 06:59 18:59 Intake Total 300 1500 300 Balance 300 1500 300 Intake: Intake, IV Titration 600 Amount Sodium Chloride 0.9% 1, 600 000 ml @ 50 mls/hr IV . Q20H BRIANDA Rx#:[id number] Oral 300 900 300 Other: Voiding Method Toilet Toilet # Voids 1 - Labs CBC & Chem 7: 05/01/20 15:39 05/01/20 15:39
[2020-05-03 10:31] LABS: Basophils # (A) 0.03 X 10*3/uL (0.00-0.10); Basophils % (A) 0.4 %; Eosinophils # (A) 0.16 X 10*3/uL (0.04-0.35); Eosinophils % (A) 2.4 %; HGB 13.7 g/dL (13.0-17.0); Lymphocytes # (A) 1.84 X 10*3/uL (0.90-5.00); Lymphocytes % (A) 27.3 %; MCH 26.9 pg (27.0-32.0); MCHC 30.4 g/dL (32.0-37.0); MCV 88.2 fL (80.0-97.0); Mean Platelet Volume 9.7 fL (9.5-12.2); Monocytes # (A) 0.44 X 10*3/uL (0.20-1.00); Monocytes % (A) 6.5 %; Neutrophils # (A) 4.26 X 10*3/uL (1.80-7.70); Neutrophils % (A) 63.3 %; Platelet Count 272 X 10*3/uL (140-440); RDW 15.2 % (11.5-14.5); WBC 6.74 X 10*3/uL (4.50-10.00)
[2020-05-03 11:20] LABS: African American GFR (CKD) 126.9 (60.0-200.0); Albumin 4.5 g/dL (3.80-4.90); Albumin/Globulin Ratio 1.8 (1.60-3.17); Anion Gap 8.8 mmol/L (4.00-12.00); BUN/Creat Ratio 16.67 Ratio (12.00-20.00); Calcium 9.1 mg/dL (8.7-10.3); Carbon Dioxide 31.2 mmol/L (21.6-31.8); Globulin 2.5 g/dL (1.6-3.3); Non-African American GFR(CKD) 109.5 (60.0-200.0); Potassium 4.6 mmol/L (3.5-5.5); Total Bilirubin 0.4 mg/dL (0.3-1.2)
--- NOTE | 2020-05-03 13:45 | CDI ---
Documentation Clarification Form Date: 05/03/2020 01:24:13 PM From: Louise Lance RN, CCDS Admit Date: 05/01/2020 01:07:00 PM Patient Name: Stan Sutherland Visit Number: [id number] Discharge Date: ATTENTION: The Clinical Documentation Specialists (CDI) and [facility] Coding Staff appreciate your assistance in clarifying documentation. Please respond to the clarification below the line at the bottom and electronically sign. The CDI & [facility] Coding staff will review the response and follow-up if needed. Please note: Queries are made part of the Legal Health Record. If you have any questions, please contact the author of this message via ITS. Dr. Rafael Torres Diastolic heart failure is documented in the H/P and subsequent progress note. Please render your opinion on the acuity of diastolic heart failure. 05/02 Cardiology consult: Clinically he is not in heart failure. Continue with IV diuresis for lower extremity swelling secondary to cellulitis. History/Risk Factors: Diastolic heart failure, Cellulitis, Morbid obesity, Hypertension, Mental delay Clinical Indicators: 34-year-old male present on 05/01 as direct admit for 60- pound weight gain. He has lower extremity swelling secondary to cellulitis 05/01 VS/Pulse OX: 164/85 89 22 98.2 99 % RA 05/01 BNP: 213 05/02 Echocardiogram Results: Unable to calculate EF. 05/01 Chest X Ray: Cardiomegaly and low lung volumes re-demonstrated Treatment: Bumex 0.25 MG IV Q 12H Tenormin 25 MG PO Daily Daily weight, Monitor I/O In your professional opinion, can you please clarify the acuity diastolic heart failure if known? Acute Diastolic Heart Failure: Chronic Diastolic Heart Failure Acute on Chronic Diastolic Heart Failure Unable to Determine Other, please specify (Last Revision: June 2017) MTDD
--- NOTE | 2020-05-04 23:06 | P.PN ---
Progress Note - Text Progress Note Date: 05/03/20 REASON FOR FOLLOWUP: Lower extremity cellulitis. INTERIM HISTORY: The patient is afebrile, the p is breathing comfortably. The Pt denies having any chest pain or cough. No abdominal pain. No pain in the lower extremity. PHYSICAL EXAMINATION: Blood pressure 120/80, pulse of 60, temperature 98.8. He is 98% on 2 L nasal cannula. General description is a middle-aged male up in the chair in no distress. Respiratory system: Unlabored breathing, decreased breath sounds in the base. Heart S1, S2. Regular rate and rhythm. Abdomen soft, no tenderness. Legs with minimal swelling and redness and mild warmth. Labs : Reviewed DIAGNOSTIC IMPRESSION AND PLAN: Patient admitted to the hospital with increased swelling lower extremity and concern for possible cellulitis. The patient is covered with cefazolin. Continue Nilo wrap in order to keep the swelling down and monitor clinical course closely. To finish therapy with oral keflex x 7 days
--- NOTE | 2020-05-07 08:49 | CDI ---
Documentation Clarification Form Date: 05/03/2020 01:24:00 PM From: Louise Lance Phone: Admit Date: 05/01/2020 01:07:00 PM Patient Name: Stan Sutherland Visit Number: [id number] Discharge Date: 05/03/2020 01:04:00 PM ATTENTION: The Clinical Documentation Specialists (CDI) and [facility] Coding Staff appreciate your assistance in clarifying documentation. Please respond to the clarification below the line at the bottom and electronically sign. The CDI & [facility] Coding staff will review the response and follow-up if needed. Please note: Queries are made part of the Legal Health Record. If you have any questions, please contact the author of this message via ITS. Dr. Rafael Torres Diastolic heart failure is documented in the H/P and subsequent progress note. Please render your opinion on the acuity of diastolic heart failure. 05/02 Cardiology consult: Clinically he is not in heart failure. Continue with IV diuresis for lower extremity swelling secondary to cellulitis. History/Risk Factors: Diastolic heart failure, Cellulitis, Morbid obesity, Hypertension, Mental delay Clinical Indicators: 34-year-old male present on 05/01 as direct admit for 60- pound weight gain. He has lower extremity swelling secondary to cellulitis 05/01 VS/Pulse OX: 164/85 89 22 98.2 99 % RA 05/01 BNP: 213 05/02 Echocardiogram Results: Unable to calculate EF. 05/01 Chest X Ray: Cardiomegaly and low lung volumes re-demonstrated Treatment: Bumex 0.25 MG IV Q 12H Tenormin 25 MG PO Daily Daily weight, Monitor I/O In your professional opinion, can you please clarify the acuity diastolic heart failure if known? Acute Diastolic Heart Failure: Chronic Diastolic Heart Failure Acute on Chronic Diastolic Heart Failure Unable to Determine Other, please specify (Last Revision: June 2017) MTDD
--- NOTE | 2020-05-10 22:01 | DS ---
DISCHARGE SUMMARY ADDENDUM TO DISCHARGE SUMMARY: Acute on chronic diastolic heart failure. MMODL / IJN: [id number] /
== END 2020-05-03 13:04 | disposition home or self-care (01) | DRG 602 ==
LOC: 4SSUR 13:07
PROVIDERS: ADMIT Family Medicine; ATTEND Family Medicine
DX: L03.115 Cellulitis of right lower limb (principal); I50.33 Acute on chronic diastolic (congestive) heart failure; Q61.3 Polycystic kidney, unspecified; Z68.45 Body mass index [BMI] 70 or greater, adult; L03.116 Cellulitis of left lower limb; I11.0 Hypertensive heart disease with heart failure; G47.33 Obstructive sleep apnea (adult) (pediatric); F03.90 Unspecified dementia, unspecified severity, without behavioral disturbance, psychotic disturbance, mood disturbance, and anxiety; E66.01 Morbid (severe) obesity due to excess calories; F79 Unspecified intellectual disabilities; Z79.890 Hormone replacement therapy; Z79.899 Other long term (current) drug therapy; Z90.5 Acquired absence of kidney
CPT/HCPCS: 71046; 80053; 83036; 83880; 84443; 84484; 85025; 85379; 93005; 93306

== ENCOUNTER 2021-07-11 06:25 | Day surgery (SDC) | payer MEDICARE, OTHER ==
[2021-07-09 15:22] VITALS: BMI 82.1
[2021-07-11] MEDS ORDERED: LACTATED RINGERS 1,000 ML IV SCH (06:38)
[2021-07-11 06:51] VITALS: TEMP 96.9
[2021-07-11 07:03] LABS: Glucose,Whole Blood 100 mg/dL (75-99)
[2021-07-11] MEDS ORDERED: ETOMIDATE 2 MG/ML 10 ML VIAL ONE (07:47)
[2021-07-11] MEDS ORDERED: MIDAZOLAM 2 MG/2 ML VIAL ONE (07:47)
[2021-07-11] MEDS ORDERED: GLYCOPYRROLATE 0.2 MG/ML 2 ML VIAL ONE (07:47)
[2021-07-11] MEDS ORDERED: KETAMINE 10 MG/ML 20 ML VIAL ONE (07:47)
[2021-07-11] MEDS ORDERED: PROPOFOL 10 MG/ML 20 ML VIAL IV ONE (07:47)
--- NOTE | 2021-07-11 08:06 | P.GSHP ---
History of Present Illness H&P Date: 07/11/21 Chief Complaint: Diarrhea Is a 28-year-old male with previous history of diarrhea. Patient presents today for colonoscopy. Patient has multiple medical problems morbid obesity.. His BMI is 84 Past Medical History Past Medical History: Hypertension, Memory Impairment, Renal Disease, Skin Disorder, Sleep Apnea/CPAP/BIPAP, Thyroid Disorder Additional Past Medical History / Comment(s): 1 kidney polycystic kidney disease age 2. enlarged heart. 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 VERY LOOSE STOOLS AND ABD PAIN History of Any Multi-Drug Resistant Organisms: None Reported Additional Past Surgical History / Comment(s): right kidney removed age 2 Past Anesthesia/Blood Transfusion Reactions: No Reported Reaction Smoking Status: Never smoker - Past Family History Sister(s) Family Medical History: Cancer Additional Family Medical History / Comment(s): OVARIAN CANCER,CERVICAL CANCER Medications and Allergies Home Medications Medication Instructions Recorded Confirmed Type Bumetanide [BUMEX] 2 mg PO DAILY 02/01/19 07/11/21 History Levothyroxine Sodium [Synthroid] 200 mcg PO QAM 02/01/19 07/11/21 History atenoloL [Tenormin] 25 mg PO DAILY 02/01/19 07/11/21 History Acetaminophen Tab [Tylenol] 325 - 650 mg PO DAILY PRN 05/01/20 07/11/21 History Unknown Otc Allergy Pill 1 tab PO DAILY PRN 05/01/20 07/11/21 History Ibuprofen [Motrin] 600 mg PO Q6HR PRN 07/09/21 07/11/21 History Allergies Allergy/AdvReac Type Severity Reaction Status Date / Time No Known Allergies Allergy Verified 07/11/21 06:40 Surgical - Exam Vital Signs Temp Pulse Resp BP Pulse Ox 96.9 F L 111 H 18 159/81 95 07/11/21 06:49 07/11/21 06:49 07/11/21 06:49 07/11/21 06:49 07/11/21 06:49 - General well developed, well nourished, no distress - Eyes PERRL - ENT normal pinna, normal nares - Neck no masses - Respiratory normal expansion - Cardiovascular Rhythm: regular - Abdomen Abdomen: soft, non tender Results - Labs Abnormal Lab Results - Last 24 Hours (Table) 07/11/21 Range/Units 07:00 POC Glucose (mg/dL) 100 H (75-99) mg/dL Assessment and Plan Assessment: Diarrhea. We'll perform colonoscopy
--- NOTE | 2021-07-11 08:08 | P.OP ---
Date of Procedure: 07/11/21 Preoperative Diagnosis: Diarrhea Postoperative Diagnosis: Normal colon Procedure(s) Performed: Colonoscopy Anesthesia: MAC Surgeon: Williams Yost Pathology: none sent Condition: stable Disposition: PACU Description of Procedure: Patient's placed on the endoscopy table in the lateral position. He received IV sedation. Digital rectal exam was performed. The patient was morbidly obese. Difficult to do the exam due to his immense size. No N amalgams were seen. The flexible colonoscope was then placed patient anus passed rotator entire colon. The ileocecal valve was visualized. Cecum, ascending and transverse colon appeared normal. In the descending colon was a few scattered diverticuli. Sc ope was brought back the to the sigmoid colon. This was normal. Scope was brought back the rectum this appeared normal. There is known to any inflamed or changes of the colon. The colonoscope was then withdrawn.
[2021-07-11 08:15] VITALS: RESP 16
[2021-07-11 08:24] VITALS: BP 133/80; PULSE 65
== END 2021-07-11 09:03 | disposition home or self-care (01) ==
LOC: ORWHC2ENDO 06:25 → EEVIPCON 06:25 → ORWHC2ENDO 09:03
PROVIDERS: ATTEND Surgery
DX: R19.7 Diarrhea, unspecified (principal); K57.30 Diverticulosis of large intestine without perforation or abscess without bleeding; E66.01 Morbid (severe) obesity due to excess calories; I10 Essential (primary) hypertension; G47.33 Obstructive sleep apnea (adult) (pediatric); R62.50 Unspecified lack of expected normal physiological development in childhood; Z68.45 Body mass index [BMI] 70 or greater, adult; Z99.81 Dependence on supplemental oxygen; Z90.5 Acquired absence of kidney; Z79.890 Hormone replacement therapy; Z79.899 Other long term (current) drug therapy; Z97.2 Presence of dental prosthetic device (complete) (partial); Z80.41 Family history of malignant neoplasm of ovary; Z80.49 Family history of malignant neoplasm of other genital organs
CPT/HCPCS: 45378; J2250; J2704

== ENCOUNTER → 2021-08-05 | Outpatient (CLI) | payer MEDICARE ==
--- NOTE | 2021-08-05 11:03 | US ---
EXAMINATION TYPE: US gallbladder DATE OF EXAM: 08/05/2021 COMPARISON: CLINICAL HISTORY: R10.11 ABD PAIN. Diarrhea. 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 Patient is morbid ly obese >500 lbs. EXAM MEASUREMENTS: Liver Length: 20.3 cm Gallbladder Wall: 0.3 cm CBD: 0.5 cm Pancreas: Body and tail obscured by bowel gas. Limited visualization. Liver: Limited visualization posterior right lobe. Enlarged in size. Gallbladder: LLD images not taken. No prominent stones visualized. Evidence for sonographic Vazquez's sign: neg CBD: Limited visualization Right Kidney: Surgically absent Suboptimal study due to large body habitus. Visualized portions of pancreas show no mass or ductal di latation. Portions are secured by overlying bowel gas. Visualized liver is prominent or enlarged and heterogeneously hyperechoic. No intrahepatic or extra hepatic biliary dilatation. Evaluation for foca l masses suboptimal due to the heterogeneity. No shadowing mobile gallstones in gallbladder. Right ki dney not identified on images saved, stated surgically absent IMPRESSION: Suboptimal study due to large body habitus. No shadowing mobile gallstones or ultrasound evidence for acute cholecystitis.
== END | disposition home or self-care (01) ==
LOC: RADUSWWP 09:29
PROVIDERS: ATTEND Family Medicine
DX: E66.01 Morbid (severe) obesity due to excess calories (principal); R10.11 Right upper quadrant pain
CPT/HCPCS: 76705

== ENCOUNTER → 2021-09-06 | Outpatient (CLI) | payer MEDICARE ==
--- NOTE | 2021-09-06 15:49 | NM ---
EXAMINATION TYPE: NM hepatobiliary w EF DATE OF EXAM: 09/06/2021 COMPARISON: Ultrasound 08/05/2021 HISTORY: 36-year-old male R10.11, right upper quadrant pain TECHNIQUE: After the intravenous administration of 5.4 mCi Tc 99m Mebrofenin hepatobiliary scintigrap hy is performed. Immediate images post injection. FINDINGS: There is satisfactory initial accumulation of tracer by the liver. The gallbladder is visualized wit hin 44 minutes. The small bowel activity is noted within 6 minutes. At one hour 8 ounces of oral en sure plus is given to mimic CCK and gallbladder ejection fraction is measured. However, gallbladder c ounts are greater on the delayed images indicating absence of adequate gallbladder contraction. IMPRESSION: 1. No scintigraphic evidence for acute cholecystitis. 2. The patient was given Ensure to promote gallbladder contraction. However, gallbladder counts are g reater after the Ensure was administered. This is compatible with inadequate gallbladder contraction. Correlate for biliary dyskinesia.
== END | disposition home or self-care (01) ==
LOC: RADNMMAIN 09:27
PROVIDERS: ATTEND Family Medicine
DX: R10.11 Right upper quadrant pain (principal)
CPT/HCPCS: 78226; A9537